=== PATIENT | female | born 1940 | race Caucasian/White ===

== ENCOUNTER 2016-07-17 17:57 | Inpatient (IN) | payer OTHER ==
[2016-07-17] MEDS ORDERED: NS 2,100 ML IV ONE (18:11)
--- NOTE | 2016-07-17 18:16 | EKG Report ---
Test Performed on : 07/17/2016 6:01:52 PM Test Reason : Blood Pressure : / mmHG Vent. Rate : 126 BPM Atrial Rate : 126 BPM P-R Int : 146 ms QRS Dur : 070 ms QT Int : 306 ms P-R-T Axes : 057 000 057 degrees QTc Int : 443 ms Sinus tachycardia. Nonspecific ST abnormality Abnormal ECG When compared with ECG of 17-JUL-2016 18:01, (Unconfirmed) No significant change was found Unconfirmed Result
--- NOTE | 2016-07-17 18:26 | PROVIDER DOCUMENTATION ---
HPI-Respiratory General - General Chief Complaint: Shortness of Breath Stated Complaint: dyspnea Time Seen by Provider: 07/17/16 18:03 Source: patient Allergies/Adverse Reactions: Patient Allergies Allergy/AdvReac Type Severity Reaction Status Date / Time No Known Allergies Allergy Verified 10/10/15 21:53 Home Medications: Aspirin 81 mg PO DAILY 11/13/13 Chlorpheniramine [Chlor-Trimeton] 4 mg PO BID 11/13/13 Citalopram [Celexa] 20 mg PO DAILY 11/13/13 ENALApril [Vasotec] 10 mg PO BID 11/13/13 Metoprolol [Lopressor] 25 mg PO BID 11/13/13 Theophylline Anhydrous [Theophylline] 600 mg PO BID 11/13/13 Amlodipine/Valsartan [Exforge 5/160] 1 each PO DAILY 07/17/16 Cetirizine HCl [Zyrtec] 10 mg PO DAILY 07/17/16 Etodolac [Lodine] 400 mg PO BID CC 07/17/16 Montelukast Sodium [Singulair] 10 mg PO DAILY 07/17/16 - History of Present Illness-Resp Quality of Pain: reports: aching Severity in ED: reports: moderate Onset/Duration: reports: 3 days ago Timing: reports: still present Cough Quality/Degree: reports: dry cough Associated Symptoms: reports: cough, fever/chills, headache, muscle/bodyaches, shortness of breath, sore throat. denies: chest pain/soreness Review of Systems - Adult - REVIEW OF SYSTEMS - ADULT Constitutional: reports: fever. denies: chills Eyes: reports: no symptoms reported Ears, Nose, Mouth & Throat: reports: throat pain Cardiovascular: reports: no symptoms reported Respiratory: reports: cough, shortness of breath Gastrointestinal: reports: abdominal pain, diarrhea. denies: nausea, vomiting Genitourinary: reports: no symptoms reported Musculoskeletal: reports: no symptoms reported Integumentary: reports: no symptoms reported Neurological: reports: headache/migraines Psychiatric: reports: no symptoms reported Endocrine: reports: no symptoms reported Hematologic/Lymphatic: reports: no symptoms reported Allergic/Immunologic: reports: no symptoms reported All Other Systems: Reviewed and Negative Past History - Adult - PAST MEDICAL HISTORY-ADULT Review of Records: reports: Old Records Reviewed, Nursing Assessment Review, Medications Reviewed, Social history reviewed & non-contributory. Major Childhood Illnesses: reports: denies history Cardiovascular: reports: HTN Respiratory: reports: COPD Endocrine/Immune: reports: thyroid disorder (goiter) - PRIOR SURGERIES/PROCEDURES Surgical/Procedure History: reports: cholecystectomy, other (Total Knee Arthroplasty) - IMMUNIZATION STATUS Childhood Immunizations: See Nurse Assessment Flu Vaccine: See Nurse Assessment - SOCIAL HISTORY Smoking: non-smoker Substance Use: none/never Alcohol Use Frequency: never Living Situation: family Physical Exam-General - PHYSICAL EXAM-ADULT Initial Vital Signs Reviewed: Yes - CONSTITUTIONAL General Appearance: appears well, alert, mild distress - EYES Eyes: PERRL/EOMI, pink conjunctivae - HEAD, EARS, NOSE, MOUTH & THROAT HENMT: normocephalic/atraumatic, normal ENT inspection. negative: moist mucous membranes (dry) - NECK Neck: non-tender, full range of motion, normal inspection - RESPIRATORY Respiratory: chest non-tender, decreased breath sounds (bilateral), wheezing ( bilateral) - CARDIOVASCULAR Cardiovascular: normal peripheral pulses, regular rate, rhythm, no edema - GASTROINTESTINAL (ABDOMEN) Abdominal Exam: normal bowel sounds, soft, tenderness - LYMPHATIC Lymphatic: no adenopathy - MUSCULOSKELETAL Back Exam: normal inspection, no CVA tenderness, no vertebral tenderness Extremity: normal range of motion, non-tender, normal gait - SKIN Integumentary: normal color, normal turgor, warm/dry - NEUROLOGIC Neurologic: grossly normal, no motor/sensory deficits - PSYCHIATRIC Psych/Mental Status: normal mood/affect, normal thought content, normal thought process, oriented x 3 Progress - PLAN OF CARE/RESULTS Progress/Plan/Lab Results: Laboratory Tests 07/17/16 07/17/16 07/17/16 18:20 18:20 18:20 WBC RBC Hgb Hct MCV MCH MCHC RDW Std Deviation Plt Count MPV Immature Gran % (Auto) Neut % (Auto) Lymph % (Auto) [place] % (Auto) Eos % (Auto) Baso % (Auto) Immature Gran # (Auto) Neut # Lymph # [place] # Eos # Baso # Segmented Neutrophils Band Neutrophils Lymphocytes Monocytes PT INR APTT (Factor Assay) D-Dimer 2.97 H Specimen Type ARTERIAL Sample Site L RADIAL pH 7.48 H pCO2 38 pO2 56 L HCO3 28.4 H Base Excess 4.6 H Oxyhemoglobin 90.9 L ABG O2 Sat (Calculated) 14.7 L ABG O2 Saturation 93.7 L ABG Carboxyhemoglobin 2.00 ABG Methemoglobin 1.0 Tulio Test YES A-a O2 Difference 96.0 Total Hemoglobin 11.5 Lactate 0.70 Liter Flow 2.0 Blood Gas Modality CANNULA FiO2 % 28.0 Sodium Potassium Chloride Carbon Dioxide Anion Gap BUN Creatinine Estimated GFR/1.73 m2 BUN/Creatinine Ratio Glucose Calculated Osmolality Calcium Total Bilirubin AST ALT Alkaline Phosphatase Creatine Kinase Troponin T [id number] Pept 2020 H Total Protein Albumin Globulin Albumin/Globulin Ratio Plasma Lactate Urine Source Urine Color Urine Clarity Urine pH Ur Specific [place] Urine Protein Urine Ketones Urine Blood Urine Nitrite Urine Bilirubin Urine Urobilinogen Urine Microscopic RBC Urine WBC Urine Microscopic WBC Ur Epithelial Cells Urine Crystals Urine Bacteria Urine Casts Urine Yeast Urine Glucose 07/17/16 07/17/16 07/17/16 18:20 18:20 18:20 WBC 26.28 H RBC 3.75 L Hgb 11.3 L Hct 34.5 L MCV 92.0 MCH 30.1 MCHC 32.8 L RDW Std Deviation 12.3 Plt Count 213 MPV 10.0 Immature Gran % (Auto) 0.3 Neut % (Auto) 90.3 H Lymph % (Auto) 3.8 L [place] % (Auto) 5.1 Eos % (Auto) 0.3 Baso % (Auto) 0.2 Immature Gran # (Auto) 0.09 H Neut # 23.75 H Lymph # 1.00 L [place] # 1.33 H Eos # 0.07 Baso # 0.04 Segmented Neutrophils 86 H Band Neutrophils 5 H Lymphocytes 3 L Monocytes 6 PT INR APTT (Factor Assay) D-Dimer Specimen Type Sample Site pH pCO2 pO2 HCO3 Base Excess Oxyhemoglobin ABG O2 Sat (Calculated) ABG O2 Saturation ABG Carboxyhemoglobin ABG Methemoglobin Tulio Test A-a O2 Difference Total Hemoglobin Lactate Liter Flow Blood Gas Modality FiO2 % Sodium 136 Potassium 3.8 Chloride 98 Carbon Dioxide 26 Anion Gap 12 BUN 17 Creatinine 0.9 Estimated GFR/1.73 m2 > 60 BUN/Creatinine Ratio 19 Glucose 91 Calculated Osmolality 273 Calcium 9.1 Total Bilirubin 0.50 AST 19 ALT 15 Alkaline Phosphatase 98 Creatine Kinase 61 Troponin T < 0.010 Ioj-Q-Tjvakpadmeb Pept Total Protein 5.9 L Albumin 3.6 Globulin 2.0 Albumin/Globulin Ratio 2.0 Plasma Lactate Urine Source Urine Color Urine Clarity Urine pH Ur Specific [place] Urine Protein Urine Ketones Urine Blood Urine Nitrite Urine Bilirubin Urine Urobilinogen Urine Microscopic RBC Urine WBC Urine Microscopic WBC Ur Epithelial Cells Urine Crystals Urine Bacteria Urine Casts Urine Yeast Urine Glucose 07/17/16 07/17/16 07/17/16 18:20 19:07 20:08 WBC RBC Hgb Hct MCV MCH MCHC RDW Std Deviation Plt Count MPV Immature Gran % (Auto) Neut % (Auto) Lymph % (Auto) [place] % (Auto) Eos % (Auto) Baso % (Auto) Immature Gran # (Auto) Neut # Lymph # [place] # Eos # Baso # Segmented Neutrophils Band Neutrophils Lymphocytes Monocytes PT 13.4 INR 0.99 APTT (Factor Assay) 24.9 D-Dimer Specimen Type Sample Site pH pCO2 pO2 HCO3 Base Excess Oxyhemoglobin ABG O2 Sat (Calculated) ABG O2 Saturation ABG Carboxyhemoglobin ABG Methemoglobin Tulio Test A-a O2 Difference Total Hemoglobin Lactate Liter Flow Blood Gas Modality FiO2 % Sodium Potassium Chloride Carbon Dioxide Anion Gap BUN Creatinine Estimated GFR/1.73 m2 BUN/Creatinine Ratio Glucose Calculated Osmolality Calcium Total Bilirubin AST ALT Alkaline Phosphatase Creatine Kinase Troponin T [id number]-[id number]-Lodxmraivrw Pept Total Protein Albumin Globulin Albumin/Globulin Ratio Plasma Lactate 1.2 Urine Source CATH Urine Color YELLOW Urine Clarity CLEAR Urine pH 7.0 Ur Specific [place] 1.000 Urine Protein NEGATIVE Urine Ketones 1+(Small) A Urine Blood NEGATIVE Urine Nitrite NEGATIVE Urine Bilirubin 2+ A Urine Urobilinogen 4+(12 mg/dL) Urine Microscopic RBC Not Reportable Urine WBC TRACE A Urine Microscopic WBC <10 Ur Epithelial Cells <10 Urine Crystals NONE SEEN Urine Bacteria NEGATIVE Urine Casts NONE SEEN Urine Yeast NONE SEEN Urine Glucose NEGATIVE Orders Category Date Time Status Cardiac Monitoring DIRECTED Care 07/17/16 18:10 Active IV Insertion ORDERED Care 07/17/16 18:10 Active Notify MD of + Sepsis Screen NOW Care 07/17/16 18:10 Active CHEST-PORTABLE [RAD] Stat Exams 07/17/16 18:16 Taken ABG [RESP] Routine Lab 07/17/16 18:20 Completed BLOOD CULTURE [BLDCUL] Stat Lab 07/17/16 19:07 Results BNP [PRO B-NATRIURETIC PEPTIDE] Stat Lab 07/17/16 18:20 Completed CBC WITH DIFF [HEME] Stat Lab 07/17/16 18:20 Completed CK PROFILE [SP CHEM] Stat Lab 07/17/16 18:20 Completed COMPREHENSIVE METABOLIC PANEL [CHEM] Stat Lab 07/17/16 18:20 [address] D-DIMER PL [COAG] Stat Lab 07/17/16 18:20 Completed LACTATE, PLASMA [CHEM] Stat Lab 07/17/16 19:07 Completed [address]IME WITH INR PL [COAG] Stat Lab 07/17/16 18:[address] [COAG] Stat Lab 07/17/16 18:20 Completed TROPONIN T Stat Lab 07/17/16 18:[address] W/POSS RFLX CULT [URINALYSIS] Stat Lab 07/17/16 20:08 Completed URINE CULTURE [RM] Routine Lab 07/17/16 20:32 Ordered 0.9% Sodium Chloride Inj [Ns] 2,100 ml Med 07/17/16 18:11 Discontinued IV 999 mls/hr Acetaminophen [Tylenol] Med 07/17/16 19:40 Discontinued 650 mg PO NOW ONE CefTRIAXONE 1 GM/NS [Rocephin 1 gm/Ns] 50 ml Med 07/17/16 19:40 Discontinued IV STAT Oxygen Device Stat Oth 07/17/16 18:10 Active Vital Signs - 24 hr 07/17/16 07/17/16 07/17/16 17:58 19:28 19:33 Temperature 101.0 F H Pulse Rate 131 H 126 H Respiratory 25 H Rate Blood Pressure 98/69 140/71 O2 Sat by Pulse 88 L 94 L Oximetry - EKG 1 Time of EKG reading by physician:: 18:01 EKG Read and Signed by:: Arjun Wang EKG Interpretation (*Must complete 3 of following elements*): Abnormal Rate: 126 Rhythm: Sinus Tachycardia Comments: Abnormal ECG , No Stemi - CONSULTS/PCP/HOSPITALIST Notification #1 *Consult/PCP/Hospitalist*: Time Discussed: 20:41 Reason/Comments: Admittance Consult Disposition: Admit (Admit Accepted) Departure - Departure Time of Disposition Order: 20:40 DIAGNOSIS: Pneumonia Qualifiers: Pneumonia type: due to unspecified organism Laterality: unspecified laterality Lung location: unspecified part of lung Qualified Code(s): J18.9 - Pneumonia, unspecified organism COPD (chronic obstructive pulmonary disease) Qualifiers: COPD type: unspecified COPD Qualified Code(s): J44.9 - Chronic obstructive pulmonary disease, unspecified Disposition: HOME 01 Certified Medical Emergency: Emergent Condition: Stable Additional Instructions: ED Follow Up Instructions: You have been treated by a care provider in the Emergency Department. These instructions are being provided to you so you can have an understanding of how to care for yourself upon discharge. Upon discharge from the Emergency Department, you are responsible for making arrangements for follow-up care by a physician of your choice. Take all prescribed medications as directed. Return to the Emergency Department immediately for any new or worsening symptoms. You may call the Physician Referral phone number at [phone] to obtain a list of Physicians who are taking new patients. Referrals: Butch Carl [Primary Care Provider] - Attestation - Scribe Verification/Attestation Scribe:: Allison Salcedo Acting as Scribe for:: Arjun Wang Scribe documention review:: This chart was documented by a scribe and accurately reflects the service the provider performed and the decisions made by the provider.
[2016-07-17 18:31] LABS: BE 4.6 mmoll (-3.0-3.0); BLOOD TYPE ARTERIAL; DRAW SITE L RADIAL; O2(CT) 14.7 mL/dL (15.0-23.0); PCO2(98.6) 38 mmHg (35-45); SAMPLE BLOOD; SAO2 93.7 % (95.0-100.0); THB 11.5 g/dL (11.5-17.4); pH(98.6) 7.48 (7.35-7.45)
[2016-07-17 18:39] LABS: MODALITY CANNULA; PO2(98.6) 56 mmHg (60-100)
[2016-07-17 18:40] LABS: ALLEN TEST YES
[2016-07-17 19:14] LABS: INR 0.99 (0.86-1.15); PROTIME 13.4 Seconds (12.1-15.5)
[2016-07-17 19:15] LABS: PTT PL 24.9 Seconds (22.6-43.9)
[2016-07-17 19:17] LABS: AGAP 12; ALBUMIN 3.6 g/dL (3.5-5.0); ALKALINE PHOSPHATASE 98 U/L (32-104); BUN 17 mg/dL (8-22); CALCIUM 9.1 mg/dL (8.8-10.2); CHLORIDE 98 mmol/L (98-107); CK PROFILE 61 U/L (24-173); COSMO 273; GOT 19 U/L (10-30); GPT 15 U/L (10-36); POTASSIUM 3.8 mmol/L (3.5-5.1); SODIUM 136 mmol/L (136-145); TCO2 26 mmol/L (25-35); TOTAL PROTEIN 5.9 g/dL (6.3-8.3)
[2016-07-17 19:27] LABS: BASO% 0.2 % (0.0-0.8); EOS# 0.07 X1000 (0.0-0.7); EOS% 0.3 % (0.0-10.0); HEMATOCRIT 34.5 % (37.0-47.0); HEMOGLOBIN 11.3 g/dL (12.0-16.0); IMM GRAN# 0.09 X1000 (0.0-0.04); IMM GRAN% 0.3 % (0.0-0.5); LYMPH% 3.8 % (20.5-51.1); MANUAL DIFF NEEDED? YES; MCH 30.1 PG (27-31); MCHC 32.8 g/dL (33-37); MONO# 1.33 X1000 (0.11-0.59); MONO% 5.1 % (1.7-9.3); NEUT% 90.3 % (42.2-75.2); PLT 213 X1000 (130-400); RBC 3.75 XMIL (4.2-5.4)
[2016-07-17] MEDS ORDERED: TYLENOL PO ONE (19:40)
[2016-07-17] MEDS ORDERED: ROCEPHIN 1 GM/NS 50 ML IV STA (19:40)
[2016-07-17 20:09] LABS: URINE SOURCE CATH
[2016-07-17 20:11] LABS: BANDS 5 % (0-1); LYMPHS 3 % (21-51); MONO 6 % (1-9)
[2016-07-17 20:20] LABS: BILIRUBIN URINE 2+ (NEGATIVE); BLOOD URINE NEGATIVE (NEGATIVE); CLARITY CLEAR (CLEAR); COLOR YELLOW; GLUCOSE URINE NEGATIVE (NEGATIVE); LEUKOCYTES URINE TRACE (NEGATIVE); NITRITE URINE NEGATIVE (NEGATIVE); PROTEIN URINE NEGATIVE (NEGATIVE); UROBILINOGEN URINE 4+(12 mg/dL)
[2016-07-17 20:31] LABS: URINE EPITHELIAL CELLS <10 /HPF (<10); URINE WBC <10 /HPF (<10)
[2016-07-17 20:32] LABS: URINE CAST NONE SEEN /LPF; URINE CRYSTAL NONE SEEN /HPF; URINE CULTURE PL NEEDED? YES
[2016-07-17] MEDS ORDERED: LOVENOX SUBQ ONE (20:43)
[2016-07-17] MEDS ORDERED: TYLENOL LIQUID PO PRN (20:57)
[2016-07-17] MEDS ORDERED: LOVENOX ONE (22:22)
[2016-07-17] MEDS: ZITHROMAX 500 MG/NS 250 ML IV SCH (22:35)
[2016-07-17] MEDS: DUONEB (A & A) INH SCH (23:30)
[2016-07-18] MEDS: DUONEB (A & A) INH SCH ×6 (03:07→22:33)
[2016-07-18] MEDS: NS 1,000 ML IV SCH ×3 (03:25→16:30)
[2016-07-18] MEDS: ROCEPHIN 1 GM/NS 50 ML IV SCH ×3 (03:25→21:20)
[2016-07-18] MEDS ORDERED: TYLENOL LIQUID PO PRN (08:19)
--- NOTE | 2016-07-18 08:21 | Diag Imaging Result Document ---
PROCEDURE NAME: CHEST-PORTABLE - 07/17/2016 PORTABLE CHEST X-RAY: COMPARISON: None. FINDINGS: There is cardiomegaly. There is linear atelectasis or infiltrate in the right lung base. There is a calcified granuloma in the left mid lung. Pulmonary vascularity is grossly normal. No pneumothorax or large effusion. IMPRESSION: Nonspecific findings.
--- NOTE | 2016-07-18 11:37 | Diag Imaging Result Document ---
PROCEDURE NAME: ANGIOGRAM/PULMONARY ARTERIES - 07/18/2016 CT PULMONARY ANGIOGRAM WITH INTRAVENOUS CONTRAST: A CT dose reduction protocol was used. COMPARISON: None. FINDINGS: Axial CT images of the chest were obtained after administering intravenous contrast. Coronal MIP images were generated. There is significant patient motion artifact in the bases. No evidence of pulmonary embolism. There is significant consolidation in the right lower lobe compatible with pneumonia. There is a trace left pleural effusion and some dependent atelectasis on the left side. Heart size is slightly enlarged. There is calcified coronary artery disease. The right lobe of the thyroid gland is enlarged and extends inferiorly in the right tracheoesophageal groove. The right lobe measures about 6.2 x 3.9 cm. The left lobe is also rather prominent. At the level of the sternal manubrium, there is compression of the trachea by both lobes of the thyroid gland. Upper abdominal images are unremarkable. Bony structures are intact. IMPRESSION: 1. Negative for pulmonary embolism. 2. Right lower lobe pneumonia. 3. Significantly enlarged thyroid gland particularly the right lobe. 4. Severe compression of the trachea by the enlarged thyroid gland at the level of the sternal manubrium. [facility]
--- NOTE | 2016-07-18 13:45 | HISTORY AND PHYSICAL ---
CHIEF COMPLAINT: Shortness of breath. HISTORY OF PRESENT ILLNESS: This is a 76-year-old female with a history of COPD, arthritis, hypertension who presented to the emergency room complaining of increasing shortness of breath. It has been present for about 2 weeks. About 3 weeks ago she noticed that it did become worse. She had subjective fevers generalized body aches and chills. She stated over the last 3 or 4 days that she noticed that it took just a little bit longer to accomplish her normal daily living due to shortness of breath but during the day prior to coming to the emergency room she developed shortness of breath at rest. She is found have a white count of 26.28 with a D-dimer of 2.97. Her chest x-ray revealed an infiltrate in the right lung base. Of note, the patient does have a history of COPD. She is on home O2. She does not have a pecan gatherer for about the past 2 years. In the emergency room she did have a room air saturation of 88%. ABG showed pH 7.48 with a PO2 of 56, bicarb of 28.4 on 2 L nasal cannula. She was given a liter of fluid along with Rocephin and admitted for further evaluation and treatment. PAST MEDICAL HISTORY: COPD, hypertension, thyroid disease. PAST SURGICAL HISTORY: Cholecystectomy and total knee. SOCIAL HISTORY: She denies alcohol, tobacco, or illicit drug use. She does live with her daughter. ALLERGIES: NO KNOWN DRUG ALLERGIES. HOME MEDICATIONS: A list will be obtained. REVIEW OF SYSTEMS: A 14-point review of systems is discussed with the patient with pertinent positives stated in HPI. She denied chest pain, palpitations, syncope, dizziness, nausea, vomiting, diarrhea, constipation, black or bloody vomitus, black or bloody stools, hematuria, dysuria, frequency, urgency. PHYSICAL EXAMINATION: GENERAL: This is a 76-year-old female who is sitting up in the bed with no distress. VITAL SIGNS: Blood pressure is 152/63 with a heart rate of 99, respirations are 20, temperature is 98.4 degrees oral with oxygen saturation 97% on 2 L nasal cannula. CARDIOVASCULAR: Regular rate and rhythm. S1 and S2 are appreciated. PULMONARY: Breath sounds are diminished with wheezing scattered throughout with prolonged expiration. No increased work of breathing noted. GASTROINTESTINAL: Soft, nontender, nondistended with bowel sounds in all 4 quadrants. MUSCULOSKELETAL: Good range of motion of joints. EXTREMITIES: No clubbing, cyanosis, or edema. To upper extremities she does have some trace pretibial edema bilateral. SKIN: Warm and dry. : Segura is patent with straw-colored urine draining. DIAGNOSTICS: Labs. WBC is 26.28 with hemoglobin 11.3, hematocrit 34.5 and platelets 213,000. D- dimer is 2.97. Sodium is 136, potassium 3.8, BUN 17, creatinine 0.9 with a glucose of 91. Blood cultures and urine culture pending. Chest x-ray reveals right lower lobe pneumonia. ASSESSMENT AND PLAN: 1. Right lower lobe pneumonia. Blood cultures were drawn in the emergency room and she was given Rocephin and azithromycin. We will continue these. Will give DuoNeb q.4 hours, q.2 hours p.r.n. with steroids to taper. Will verify her home medications and continue as appropriate. The patient has not seen a pecan gatherer in a few years she stated that she just stopped seeing the one that she had. She is encouraged to have pulmonology follow up. She was given the number to Dr. Monique's office to schedule an appointment if she decides. As right now she does not want us to schedule appointment for her. 2. The patient states that she has a history of chronic diarrhea that has been present for the last year, has increased over the last month. She denies any chronic antibiotic use. Discuss this with her daughter and will on discharge we can schedule an appointment with gastroenterology Dr. Downing as they had used him in the past to establish care. Further treatments pending hospital course. Dictated by INGA Wells for Ciro Valencia MD will workup hyperthyroidism and follow, may explain diarrhea and other symptoms , agree with above APENOT MTDD
[2016-07-18] MEDS: SOLU-MEDROL IV SCH ×2 (16:30→21:20)
[2016-07-18] MEDS: ZITHROMAX 500 MG/NS 250 ML IV SCH (22:17)
[2016-07-19] MEDS: DUONEB (A & A) INH SCH ×6 (03:21→22:46)
[2016-07-19] MEDS: NS 1,000 ML IV SCH ×2 (03:46→13:34)
[2016-07-19] MEDS: SOLU-MEDROL IV SCH ×3 (03:46→18:56)
[2016-07-19 06:21] LABS: AGAP 8; BUN 13 mg/dL (8-22); CALCIUM 8.4 mg/dL (8.8-10.2); CHLORIDE 107 mmol/L (98-107); COSMO 290; MAGNESIUM 1.8 mg/dL (1.5-2.7); POTASSIUM 3.5 mmol/L (3.5-5.1); SODIUM 140 mmol/L (136-145); TCO2 25 mmol/L (25-35)
[2016-07-19] MEDS ORDERED: TYLENOL LIQUID PO PRN (06:37)
[2016-07-19 06:42] LABS: HEMATOCRIT 30.2 % (37.0-47.0); HEMOGLOBIN 9.6 g/dL (12.0-16.0); MCH 29.6 PG (27-31); MCHC 31.8 g/dL (33-37); MCV 93.2 FL (81-99); RBC 3.24 XMIL (4.2-5.4)
--- NOTE | 2016-07-19 10:36 | PROGRESS NOTE ---
DATE: 07/19/2016 SUBJECTIVE: The patient states that she is feeling better today. She has had less shortness of breath. At present, she is receiving thyroid ultrasound. OBJECTIVE: Vital Signs: Blood pressure is 168/75 with a heart rate of 115, respirations are 18, temperature is 97.9 degrees oral with oxygen saturation of 95%. Cardiovascular: Regular rate and rhythm. She is tachycardic. S1 and S2 appreciated. Pulmonary: Breath sounds are clear with prolonged expiration. No increased work of breathing noted. Gastrointestinal: Abdomen is soft, nontender, nondistended with bowel sounds in all 4 quadrants. Extremities: No clubbing, cyanosis. She does have some trace pretibial edema. LABS: WBC is 11.9 down from 26.28 with hemoglobin 9.6, hematocrit 30.2 and platelets of 200. Sodium is 140, potassium 3.5, BUN 13, creatinine 0.8, glucose of 286. Her TSH was 0.01 with a free T4 of 1.50. PROBLEM LIST: 1. Right lower lobe pneumonia. The white blood cell count is dropping. The patient states that she is feeling better. We will continue with her current regimen. Once again, she will follow up with Dr. Monique on an outpatient basis. 2. Hyperthyroid. The patient does have thyroid ultrasound. Results are pending. 3. Chronic diarrhea. This has been present for the last year. Her hyperthyroidism could be a component. We have encouraged outpatient follow up with Dr. Downing. Dictated by INGA Wells for Ciro Valencia MD
[2016-07-19] MEDS: ROCEPHIN 1 GM/NS 50 ML IV SCH ×2 (11:17→22:00)
[2016-07-19] MEDS ORDERED: LOPRESSOR PO ONE (13:35)
[2016-07-19] MEDS ORDERED: ULTRAM PO SCH (13:45)
[2016-07-19] MEDS ORDERED: ULTRAM PO PRN (14:21)
--- NOTE | 2016-07-19 14:39 | Diag Imaging Result Document ---
PROCEDURE NAME: US SOFT TISSUE HEAD NECK - 07/19/2016 THYROID ULTRASOUND: FINDINGS: The examination is somewhat suboptimal technically. The left thyroid lobe is markedly inhomogeneous. Same is true of the right thyroid lobe. No measurements were obtained. Judging from the CT which was performed of the chest on 07/18/2016, the majority of the thyroidal tissue is below the level of the sternum. The right lobe in particular extends far posteriorly into the upper mediastinum displacing the esophagus slightly to the left with multiple small calcifications. This is not going to be accessible to ultrasonography, nor to percutaneous biopsy. 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
[2016-07-19] MEDS ORDERED: COMBIVENT RESPIMAT INHALER INH SCH (15:00)
[2016-07-19] MEDS: LODINE PO SCH (16:48)
[2016-07-19] MEDS: NORCO-7.5 PO SCH (22:00)
[2016-07-19] MEDS: LOPRESSOR PO SCH (22:00)
[2016-07-19] MEDS: ATIVAN PO SCH (22:01)
[2016-07-20] MEDS: ZITHROMAX 500 MG/NS 250 ML IV SCH (00:18)
[2016-07-20] MEDS: DUONEB (A & A) INH SCH ×6 (03:32→23:57)
[2016-07-20] MEDS ORDERED: DUONEB (A & A) INH PRN (05:56)
[2016-07-20 06:19] LABS: HEMATOCRIT 29.3 % (37.0-47.0); HEMOGLOBIN 9.3 g/dL (12.0-16.0); MCHC 31.7 g/dL (33-37); MCV 94.5 FL (81-99); MPV 9.9 FL (7.4-10.4); RBC 3.1 XMIL (4.2-5.4)
[2016-07-20] MEDS: PRILOSEC PO SCH (06:48)
[2016-07-20] MEDS: SOLU-MEDROL IV SCH ×3 (06:49→17:59)
[2016-07-20 07:23] LABS: AGAP 9; BUN 20 mg/dL (8-22); CALCIUM 8.1 mg/dL (8.8-10.2); CHLORIDE 109 mmol/L (98-107); COSMO 284; POTASSIUM 3.6 mmol/L (3.5-5.1); SODIUM 139 mmol/L (136-145); TCO2 22 mmol/L (25-35)
[2016-07-20] MEDS: ASPIRIN PO SCH (08:53)
[2016-07-20] MEDS: NS 1,000 ML IV SCH ×3 (08:53→19:01)
[2016-07-20] MEDS: LODINE PO SCH ×2 (08:53→17:59)
[2016-07-20] MEDS: NORCO-7.5 PO SCH ×2 (08:53→20:37)
[2016-07-20] MEDS: ZYRTEC PO SCH (08:53)
[2016-07-20] MEDS: HYDROCHLOROTHIAZIDE PO SCH (08:54)
[2016-07-20] MEDS: DIOVAN PO SCH (08:54)
[2016-07-20] MEDS: LOPRESSOR PO SCH ×2 (08:54→20:36)
[2016-07-20] MEDS: NORVASC PO SCH (08:54)
[2016-07-20] MEDS: ATIVAN PO SCH ×2 (08:54→20:36)
[2016-07-20] MEDS: SINGULAIR PO SCH (08:54)
[2016-07-20] MEDS: ROCEPHIN 1 GM/NS 50 ML IV SCH ×2 (08:55→20:36)
[2016-07-20] MEDS: CELEXA PO SCH (08:55)
[2016-07-20] MEDS ORDERED: HCTHIAZID PO SCH (09:00)
[2016-07-20] MEDS ORDERED: [UNRECOGNIZED DRUG - OTHER] PO SCH (09:00)
[2016-07-20] MEDS ORDERED: VALSARTAN PO SCH (09:00)
[2016-07-20] MEDS ORDERED: AMLODIPINE PO SCH (09:00)
[2016-07-20] MEDS: FLONASE NAS SCH (09:04)
--- NOTE | 2016-07-20 14:16 | PROGRESS NOTE ---
DATE: 07/20/2016 SUBJECTIVE: Ms. Antunez states that she feels better today. She feels like she is breathing better. She denies any chest pain, palpitations, PND, orthopnea. OBJECTIVE: Vital signs: Blood pressure is 181/73 with a heart rate of 56, respirations are 18, temperature is 97.5 degrees oral with oxygen saturations of 93-95% on 2 L nasal cannula. Cardiovascular: Regular rate and rhythm. S1 and S2 appreciated. She is tachycardic. Pulmonary: Breath sounds are clear with prolonged expiration. No increased work of breathing noted. Gastrointestinal: Abdomen soft, nontender, nondistended. Bowel sounds in all 4 quadrants. Extremities: No clubbing or cyanosis. She does have a little pretibial edema. LABS: WBC is 16 with a hemoglobin 9.3, hematocrit 29 and platelets of 221,000. Sodium is 139, potassium 3.6, BUN 20, creatinine 0.9 with a glucose of 160. Head and neck ultrasound revealed multinodular goiter with extensive substernal and mediastinal component. The right lobe in particular extends far posteriorly into the upper mediastinum displacing the esophagus to the left with multiple small calcifications. PROBLEM LIST: 1. Right lower lobe pneumonia. White blood cell count went up. The patient has been in bed since admission. Will get her up in a chair, get her moving around. Will continue with her current treatment. 2. Hyperthyroid. 3. Thyroid goiter. According to the ultrasound is pretty large goiter. It does extend to the level of the sternum with the right lobe extending posteriorly into the upper mediastinum displacing the esophagus. This is not going to be accessible ultrasound nor percutaneous biopsy. This may be some component to the patient's stating that she feels like food has being getting stuck over the last 6 months. She can be evaluated by a general surgery on an outpatient basis for this. 4. Chronic diarrhea. This has been present for about a year. Hyperthyroidism could be a component. She can follow up on an outpatient basis with Dr. Downing as she has seen him in the past. Dictated by INGA Wells for Ciro Valencia MD
[2016-07-20] MEDS: ZITHROMAX PO SCH (20:36)
[2016-07-21] MEDS: DUONEB (A & A) INH SCH ×6 (02:58→22:42)
[2016-07-21] MEDS: SOLU-MEDROL IV SCH ×3 (03:00→20:24)
[2016-07-21] MEDS: PRILOSEC PO SCH (06:11)
[2016-07-21] MEDS: ROCEPHIN 1 GM/NS 50 ML IV SCH ×2 (09:41→20:23)
[2016-07-21] MEDS: ASPIRIN PO SCH (09:42)
[2016-07-21] MEDS: NORCO-7.5 PO SCH ×2 (09:42→20:24)
[2016-07-21] MEDS: CELEXA PO SCH (09:42)
[2016-07-21] MEDS: ZYRTEC PO SCH (09:42)
[2016-07-21] MEDS: LOPRESSOR PO SCH ×2 (09:42→20:26)
[2016-07-21] MEDS: HYDROCHLOROTHIAZIDE PO SCH (09:42)
[2016-07-21] MEDS: ATIVAN PO SCH ×2 (09:42→20:27)
[2016-07-21] MEDS: NORVASC PO SCH (09:43)
[2016-07-21] MEDS: DIOVAN PO SCH (09:43)
[2016-07-21] MEDS: SINGULAIR PO SCH (09:43)
[2016-07-21] MEDS: LODINE PO SCH ×2 (09:44→17:53)
[2016-07-21] MEDS: FLONASE NAS SCH (09:44)
--- NOTE | 2016-07-21 11:24 | PROGRESS NOTE ---
DATE: 07/21/2016 SUBJECTIVE: Patient resting quietly in bed. States, "I don't feel as good today as I did yesterday", but no specific complaints were voiced. OBJECTIVE: Vital signs: Temp 98.4 degrees, pulse 105, respirations 18, blood pressure 154/69 saturating 96-97% on 2 L via nasal cannula. HEENT: Normocephalic and atraumatic. Pupils are equal, round, reactive to light. Extraocular movements are intact. Oropharynx and nares are clear. Neck: Supple. Lungs: With some scattered expiratory wheezing noted. Equal lung expansion and chest wall movement. Heart: Regular rate and rhythm. No murmurs, rubs, or gallops. Abdomen: Abdomen is soft, nontender, nondistended. Bowel sounds are present x4 quadrants. Extremities: No clubbing, cyanosis. Patient is noted to have some edema to her upper and lower extremities. Neurological: Cranial nerves 2-12 appear grossly intact. LABORATORY DATA: No new labs today. ASSESSMENT AND PLAN: 1. Right lower lobe pneumonia. We will continue her IV antibiotics, DuoNebs. We will continue her steroids. We will recheck a CBC in the a.m. She is to continue to get up to the chair with meals and at bedtime. 2. Thyroid goiter. She will be evaluated on an outpatient basis by General Surgery once discharged from the hospital. 3. Chronic diarrhea. She will follow up with LATISHA Daugherty as an outpatient, and this is most likely a contributing component to her hyperthyroidism. 4. Generalized edema. We will stop her IV fluids at this time. We are rechecking her weight. She may need a low-dose of Lasix and we will continue daily weights to evaluate that. Dictated by INGA Reynolds for Ciro Valencia MD
[2016-07-21] MEDS: LASIX IV SCH ×2 (11:26→20:24)
[2016-07-21] MEDS: ZITHROMAX PO SCH (20:24)
[2016-07-22] MEDS: PRILOSEC PO SCH (06:40)
--- NOTE | 2016-07-22 07:14 | Extremity Venous Study ---
PROCEDURE NAME: Venous U/S Bilateral Legs - 07/18/2016 VENOUS ULTRASOUND OF BOTH LOWER EXTREMITIES: FINDINGS: The deep veins are compressible and demonstrate no evidence of obstruction on color Doppler flow. IMPRESSION: No evidence of deep venous thrombosis.
[2016-07-22 07:21] LABS: BASO% 0.2 % (0.0-0.8); HEMATOCRIT 33.5 % (37.0-47.0); HEMOGLOBIN 11.1 g/dL (12.0-16.0); IMM GRAN% 2.4 % (0.0-0.5); LYMPH# 0.59 X1000 (1.2-3.4); LYMPH% 4.8 % (20.5-51.1); MANUAL DIFF NEEDED? YES; MCH 30.2 PG (27-31); MCHC 33.1 g/dL (33-37); MONO# 0.61 X1000 (0.11-0.59); MONO% 4.9 % (1.7-9.3); MPV 9.7 FL (7.4-10.4); NEUT% 87.7 % (42.2-75.2); PLT 298 X1000 (130-400); RBC 3.68 XMIL (4.2-5.4)
[2016-07-22] MEDS: DUONEB (A & A) INH SCH ×5 (07:44→22:40)
[2016-07-22 07:55] LABS: BANDS 1 % (0-1); LYMPHS 9 % (21-51); MONO 5 % (1-9); NRBC 2 % (0-0)
[2016-07-22 08:00] LABS: CALCIUM 9.2 mg/dL (8.8-10.2); POTASSIUM 3.9 mmol/L (3.5-5.1)
[2016-07-22] MEDS: ROCEPHIN 1 GM/NS 50 ML IV SCH (09:18)
[2016-07-22] MEDS: SINGULAIR PO SCH (09:19)
[2016-07-22] MEDS: LOPRESSOR PO SCH ×2 (09:19→22:08)
[2016-07-22] MEDS: ZYRTEC PO SCH (09:19)
[2016-07-22] MEDS: LODINE PO SCH ×2 (09:19→17:51)
[2016-07-22] MEDS: ASPIRIN PO SCH (09:19)
[2016-07-22] MEDS: NORVASC PO SCH (09:19)
[2016-07-22] MEDS: CELEXA PO SCH (09:20)
[2016-07-22] MEDS: ATIVAN PO SCH ×2 (09:20→22:09)
[2016-07-22] MEDS: DIOVAN PO SCH (09:20)
[2016-07-22] MEDS: NORCO-7.5 PO SCH ×2 (09:20→22:08)
[2016-07-22] MEDS: SOLU-MEDROL IV SCH (09:27)
[2016-07-22] MEDS: FLONASE NAS SCH (09:27)
--- NOTE | 2016-07-22 11:18 | PROGRESS NOTE ---
DATE: 07/22/2016 SUBJECTIVE: The patient states that she feels better today. She has been sitting on the side of the bed. She denies any chest pain, palpitations, any PND or orthopnea. OBJECTIVE: Vital Signs: Blood pressure is 147/77. Heart rate , 95-97% on 2 L nasal cannula. Cardiovascular: Regular rate and rhythm. S1 and S2 are appreciated. Pulmonary: She does have some scattered expiratory wheezing with no increased work of breathing noted. Gastrointestinal: Abdomen is soft, nontender, nondistended with bowel sounds in all 4 quadrants. Extremities: No clubbing, cyanosis. She does have some edema noted to upper and lower extremities. Neurologic: She is alert and oriented x3. LABORATORY DATA: WBC is 12.39 with hemoglobin 11.1, hematocrit 33.5, platelets of 298,000. Sodium is 142, potassium 3.9, BUN 30, creatinine 1.1 with a glucose of 157. Her albumin is 3.4. ASSESSMENT AND PLAN: 1. Right lower lobe pneumonia. We will continue with her current regimen. We will continue to decrease her steroids. 2. Thyroid goiter due to considerable size. This needs to be followed with general surgery. This can be done on an outpatient basis. 3. Chronic diarrhea. She is to follow up with Dr. Downing as an outpatient. Of course, her hyperthyroid could be a very large contributing component. 4. Generalized edema. Will stop her IV fluids. She is -2 L over the last 24 hours. Dictated by INGA Wells for Ciro Valencia MD
[2016-07-22] MEDS: LOVENOX SUBQ SCH (18:41)
[2016-07-22] MEDS: ZITHROMAX PO SCH (22:08)
[2016-07-23] MEDS: DUONEB (A & A) INH SCH ×6 (03:35→18:15)
[2016-07-23] MEDS: NORCO-7.5 PO SCH ×3 (04:56→20:55)
[2016-07-23] MEDS: ROCEPHIN 1 GM/NS 50 ML IV SCH ×5 (04:57→21:02)
[2016-07-23] MEDS: PRILOSEC PO SCH ×2 (05:50→06:21)
[2016-07-23 06:25] LABS: HEMATOCRIT 30.3 % (37.0-47.0); HEMOGLOBIN 9.4 g/dL (12.0-16.0); MCH 28.8 PG (27-31); MCV 92.9 FL (81-99); MPV 9.8 FL (7.4-10.4); RBC 3.26 XMIL (4.2-5.4)
[2016-07-23 06:33] LABS: POTASSIUM 3.8 mmol/L (3.5-5.1)
[2016-07-23] MEDS: LOPRESSOR PO SCH ×2 (08:49→20:55)
[2016-07-23] MEDS: LODINE PO SCH ×2 (08:50→17:05)
[2016-07-23] MEDS: ZYRTEC PO SCH (08:50)
[2016-07-23] MEDS: SINGULAIR PO SCH (08:50)
[2016-07-23] MEDS: CELEXA PO SCH (08:51)
[2016-07-23] MEDS: NORVASC PO SCH (08:51)
[2016-07-23] MEDS: ASPIRIN PO SCH (08:51)
[2016-07-23] MEDS: ATIVAN PO SCH ×2 (08:52→20:55)
[2016-07-23] MEDS: DIOVAN PO SCH (08:53)
[2016-07-23] MEDS: FLONASE NAS SCH (08:58)
[2016-07-23] MEDS ORDERED: SOLU-MEDROL IV SCH (09:00)
--- NOTE | 2016-07-23 10:41 | Diag Imaging Result Document ---
PROCEDURE NAME: WINIFRED ABDOMEN - 07/23/2016 KUB: INDICATION: Ileus. FINDINGS: Single portable supine view of the abdomen reveals moderate cecal material within the distal transverse colon. No small bowel dilatation is appreciated. Rectal gas is present. There are cholecystectomy clips. There is a moderate rotoscoliosis. IMPRESSION: Nonspecific abdomen. No evidence for ileus or obstruction.
--- NOTE | 2016-07-23 16:39 | PROGRESS NOTE ---
DATE: 07/23/2016 SUBJECTIVE: No focal complaints voiced. Resting quietly in bed. OBJECTIVE: Vital signs: Temperature 98.0 degrees, pulse Pulse 82. Respirations 18. Blood pressure 119/52. Saturating 100% on room air. General: This is a 76-year-old female who is resting quietly in bed. HEENT: Normocephalic and atraumatic. Pupils are equal, round, reactive to light. Extraocular movements are intact. Oropharynx and nares are clear. Neck: Supple. Lungs: Were clear to auscultation bilaterally with equal lung expansion and chest wall movement. Heart: With regular rate and rhythm. No murmurs, rubs, or gallops. Abdomen: Abdomen is soft, nontender, nondistended. Bowel sounds are present x4 quadrants. Extremities: There is no clubbing or cyanosis. Patient is noted to have some mild edema to her right hand. Neurological: The cranial nerves 2-12 are grossly intact. LABORATORY DATA: Showed a white blood cell count of 10.26, hemoglobin 9.4, hematocrit 30.3, platelets 271,000. Sodium 141, potassium 3.8, chloride 105, CO2 27, BUN of 36, creatinine 1.1. Glucose 97. IMAGING: Abdominal x-ray showed a nonspecific abdomen, no evidence for ileus or obstruction. ASSESSMENT/PLAN: 1. Right lower lobe pneumonia. We will continue with her current medication regimen and recheck a CBC in the a.m. 2. Thyroid goiter She will follow up with General Surgery on a outpatient basis. 3. Chronic diarrhea. She will be following up with Dr. Downing as an outpatient. 4. Generalized edema. Her fluids have been stopped. This has improved as she received 2 doses of Lasix day before yesterday, and she is noted to have some minimal edema to her right hand, but otherwise improved. We will recheck a BMP in the a.m. DISPOSITION: She will be discharged to rehab when bed available, which should be in the next day or two. Dictated by INGA Reynolds for Amilcar Vargas MD
[2016-07-23] MEDS: LOVENOX SUBQ SCH (17:04)
[2016-07-23] MEDS ORDERED: NS 500 ML IV SCH (19:30)
[2016-07-23] MEDS: ZITHROMAX PO SCH (20:55)
[2016-07-24] MEDS: DUONEB (A & A) INH SCH ×4 (00:24→11:19)
[2016-07-24] MEDS: PRILOSEC PO SCH (06:04)
[2016-07-24 06:09] LABS: MANUAL DIFF NEEDED? NO
[2016-07-24 06:17] LABS: BASO% 0.1 % (0.0-0.8); EOS# 0.26 X1000 (0.0-0.7); HEMATOCRIT 31.6 % (37.0-47.0); HEMOGLOBIN 9.8 g/dL (12.0-16.0); IMM GRAN# 0.32 X1000 (0.0-0.04); IMM GRAN% 3.6 % (0.0-0.5); LYMPH# 1.73 X1000 (1.2-3.4); LYMPH% 19.7 % (20.5-51.1); MCV 93.5 FL (81-99); MONO# 0.69 X1000 (0.11-0.59); MONO% 7.8 % (1.7-9.3); MPV 9.7 FL (7.4-10.4); NEUT% 65.8 % (42.2-75.2); PLT 294 X1000 (130-400); RBC 3.38 XMIL (4.2-5.4)
[2016-07-24 06:34] LABS: AGAP 6; BUN 30 mg/dL (8-22); CALCIUM 8.9 mg/dL (8.8-10.2); CHLORIDE 107 mmol/L (98-107); COSMO 285; POTASSIUM 3.9 mmol/L (3.5-5.1); SODIUM 140 mmol/L (136-145); TCO2 27 mmol/L (25-35)
--- NOTE | 2016-07-24 08:14 | PROGRESS NOTE ---
DATE: 07/24/2016 SUBJECTIVE: Patient states she is feeling a bit better. She is having no real complaints. Notes that she had a urinary output yesterday. She is able to sit up with some assistance. PHYSICAL EXAMINATION: Vital Signs: Temperature 98, pulse 92, respiratory rate 18, blood pressure 152/69. General: Patient is well developed, well nourished. Currently in no distress. She is awake, alert. Pleasant to talk with. Speech is regular. Neck: Supple. CV: Regular rate. Chest: Clear. Abdomen: Soft and obese. Extremities: Moves all extremities. Trace edema. Neurologic: No changes. LABORATORY DATA: Hemoglobin and hematocrit 9 and 31, WBCs 8. Creatinine 0.9. Calcium 8.9. ASSESSMENT: 1. Hypocalcemia, resolved. 2. Leukocytosis, improved. 3. Generalized edema. Continues to improve. She has had a 3 pound weight loss in the past few days. She has been negative approximately 3.5 L over the past 2 days. 4. Right lower lobe pneumonia. Continues to improve. Currently on Rocephin and azithromycin. 5. Hypertension. Continue Diovan, Norvasc, and metoprolol. 6. Thyroid goiter. Will need to continue to follow outpatient. 7. Chronic diarrhea. Continues to be problematic but has not changed. PLAN: We will continue patient's chronic medications. Continue to wean. Discontinue her Segura. Continue physical therapy. She certainly will need rehabilitation and is capable of transferring to rehabilitation when bed available.
--- NOTE | 2016-07-24 10:16 | DISCHARGE SUMMARY ---
ADMISSION DATE: 07/17/2016 DISCHARGE DATE: 07/24/2016 ADMISSION DIAGNOSES: 1. Right lower lobe pneumonia. 2. Chronic diarrhea for the past year. DISCHARGE DIAGNOSES: 1. Right lower lobe pneumonia, improved. 2. Leukocytosis, improved. 3. Hypertension. 4. Thyroid goiter. 5. Chronic diarrhea. SUMMARY OF FINDINGS: This is a 76-year-old, female who presented to the emergency room with complaints of increased shortness of breath for about 2 weeks. Had subjective fevers, generalized body aches, and chills. She stated over just the last 3-4 days, she noticed that it took a little longer to accomplish her normal daily living due to the shortness of breath. When she came to the emergency room, she was found to have a white blood cell count of 26.28 with a D- dimer of 2.97. Chest x-ray revealed an infiltrate in the right lung base. She has O2 at home and has been followed by a mobile phone salesperson for the past 2 years. In the emergency room, she was noted to have a room air saturation of 88%. She was started on IV antibiotics, DuoNebs q.4 hours and 2 hours p.r.n., a steroid taper. The patient states that she had not seen her mobile phone salesperson in a few years. She had a lower extremity venous Doppler study that showed no evidence of a DVT. She had a pulmonary arteriogram that was negative for pulmonary embolism and showed a right lower lobe pneumonia. It also showed a significantly enlarged thyroid gland, particularly in the right lobe with severe compression of the trachea by the enlarged thyroid gland at the level of the sternal manubrium. We did a head and neck ultrasound that found a multinodular goiter with extensive substernal and mediastinal component. It was felt by the attending physician that this could best be worked up as an outpatient after she completes her rehabilitation stay. She has clinically improved. White blood cell count today is 8.8. She has been afebrile for greater than 24 hours. Her chronic diarrhea also can be followed up outpatient after completion of rehabilitation with her GI doctor, Dr. Downing. All of these things have been discussed with the patient and her family, and they verbalized understanding and it is felt that she can safely be discharged to rehabilitation today. DISCHARGE MEDICATIONS: Will include Levaquin 500 mg p.o. daily for 5 days, aspirin 81 mg p.o. daily, Zyrtec 10 mg p.o. daily, Celexa 20 mg p.o. daily, etodolac 400 mg p.o. b.i.d. with meals, 1 spray nasally daily, Parmelee 7.5 one p.o. b.i.d., Combivent inhaler 4 times daily, Ativan 0.5 mg p.o. b.i.d., metoprolol 12.5 mg p.o. b.i.d., Singulair 10 mg p.o. daily, and Prilosec 20 mg p.o. daily. FOLLOWUP: Again, she can follow up with general surgery outpatient for her goiter once rehabilitation is completed and with GI for her chronic diarrhea after rehabilitation is completed. 35 minutes. Dictated by INGA Reynolds for Amilcar Vargas MD
[2016-07-24] MEDS: LODINE PO SCH (10:19)
[2016-07-24] MEDS: NORCO-7.5 PO SCH (10:20)
[2016-07-24] MEDS: ASPIRIN PO SCH (10:20)
[2016-07-24] MEDS: NORVASC PO SCH (10:21)
[2016-07-24] MEDS: CELEXA PO SCH (10:21)
[2016-07-24] MEDS: SINGULAIR PO SCH (10:21)
[2016-07-24] MEDS: LOPRESSOR PO SCH (10:22)
[2016-07-24] MEDS: ATIVAN PO SCH (10:22)
[2016-07-24] MEDS: DIOVAN PO SCH (10:23)
[2016-07-24] MEDS: ZYRTEC PO SCH (10:23)
[2016-07-24] MEDS: ROCEPHIN 1 GM/NS 50 ML IV SCH (10:24)
[2016-07-24] MEDS: FLONASE NAS SCH (10:24)
[2016-07-24 12:42] VITALS: BP 150/75
== END 2016-07-24 14:50 | DRG 190 ==
LOC: P.ED 17:57 → P.MEDSURG 21:47
PROVIDERS: ATTEND Family Medicine
DX: J44.0 Chronic obstructive pulmonary disease with (acute) lower respiratory infection (principal); J18.9 Pneumonia, unspecified organism; Z99.81 Dependence on supplemental oxygen; E83.51 Hypocalcemia; I10 Essential (primary) hypertension; M19.90 Unspecified osteoarthritis, unspecified site; R60.1 Generalized edema; Z79.82 Long term (current) use of aspirin; Z79.891 Long term (current) use of opiate analgesic; Z79.899 Other long term (current) drug therapy; Z79.51 Long term (current) use of inhaled steroids; K52.89 Other specified noninfective gastroenteritis and colitis; E05.20 Thyrotoxicosis with toxic multinodular goiter without thyrotoxic crisis or storm; J39.8 Other specified diseases of upper respiratory tract
CPT/HCPCS: 36415; 51702; 71010; 71275; 74000; 76536; 80048; 80053; 81001; 82040; 82550; 82805; 83605; 83735; 83880; 84439; 84443; 84481; 84484; 85025; 85027; 85379; 85610; 85730; 87040; 87088; 87804; 93970; 94640; 94761; 96361; 96365; 96367; J0456; J0696; J1650; J1940; J2920; J7030; J7040; Q9967; 97001-GP

== ENCOUNTER 2016-09-29 16:41 | Inpatient (IN) | payer OTHER ==
[2016-09-29] MEDS ORDERED: ASPIRIN PO STA (17:09)
[2016-09-29] MEDS ORDERED: LASIX IV ONE (17:12)
[2016-09-29] MEDS ORDERED: DUONEB (A & A) INH ONE (17:13)
[2016-09-29] MEDS ORDERED: SOLU-MEDROL IV ONE (17:13)
--- NOTE | 2016-09-29 17:19 | PROVIDER DOCUMENTATION ---
HPI-Respiratory General - General Chief Complaint: Shortness of Breath Stated Complaint: SOB Time Seen by Provider: 09/29/16 17:03 Source: patient Allergies/Adverse Reactions: Patient Allergies Allergy/AdvReac Type Severity Reaction Status Date / Time No Known Allergies Allergy Verified 09/04/16 12:42 Home Medications: Home Medication List Medication Instructions Recorded Confirmed Last Taken Type Albuterol Sulfate 0.63 mg IH 4XDAY PRN PRN 09/04/16 09/04/16 Unknown History Albuterol Sulfate [Proventil Hfa] 1 - 2 puff IH Q6H PRN PRN 09/04/16 09/04/16 Unknown History Alendronate Sodium [Fosamax] 70 mg PO DIRECTED 09/04/16 09/04/16 Unknown History Chlorpheniramine [Chlor-Trimeton] 1 tab PO BID PRN 09/04/16 09/04/16 Unknown History Citalopram [Celexa] 20 mg PO DAILY 09/04/16 09/30/16 09/30/16 08:00 History Fluticasone 50 Mcg Nasal [place] 1 spray JUSTINE DAILY 09/04/16 09/04/16 Unknown History [Flonase] Fluticasone/Salmeterol [Advair 1 each IH BID 09/04/16 09/04/16 Unknown History 500-50 Diskus] Hydrocodone/APAP 5 mg/325 mg 1 each PO Q6H PRN PRN 09/04/16 09/04/16 Unknown History [[place]-5] Ipratropium/Albuterol INH 2 inh INH Q4H PRN PRN 09/04/16 09/04/16 Unknown History [Combivent Respimat Inhaler] Lorazepam [Ativan] 0.5 mg PO BID PRN PRN 09/04/16 09/30/16 Unknown History Bumetanide [Bumex] 1 mg PO DAILY #30 tablet 09/09/16 Unknown Rx Omeprazole [Prilosec] 40 mg PO DAILY@0700 #60 capsule 09/09/16 09/30/16 Unknown Rx Bumetanide 2 mg PO DAILY 09/30/16 09/30/16 Unknown History Etodolac 400 mg PO BID 09/30/16 09/30/16 Unknown History Hydrocodone/Acetaminophen [[place] 7.5 mg PO PRN PRN 09/30/16 09/30/16 Unknown History 7.5-325 Tablet] Metoprolol [Lopressor] 12.5 mg PO BID 09/30/16 09/30/16 Unknown History Montelukast [Singulair] 10 mg PO DAILY 09/30/16 09/30/16 Unknown History - History of Present Illness-Resp Nature of Presenting Problem: Pt is 76 y/o F presents to the ED with SOB. Pt states she is on home oxygen at 2.5L 09/02. Pt states she has COPD. Pt states former smoker. Pt states SOB has worsened past 3 days. Pt denies F Quality of Pain: reports: aching Severity in ED: reports: mild Onset/Duration: reports: 3 days ago Timing: reports: still present Exposure: reports: unknown cause Cough Quality/Degree: reports: no cough Current Respiratory Medication Therapy: Initiated see nurses note Modifying Factors: improves with: nothing Associated Symptoms: reports: shortness of breath Similar Symptoms Previously?: Yes Recently seen or treated by another doctor?: No Review of Systems - Adult - REVIEW OF SYSTEMS - ADULT Constitutional: reports: no symptoms reported Eyes: reports: no symptoms reported Ears, Nose, Mouth & Throat: reports: no symptoms reported Cardiovascular: reports: no symptoms reported Respiratory: reports: shortness of breath. denies: cough, wheezing Gastrointestinal: reports: no symptoms reported Genitourinary: reports: no symptoms reported Musculoskeletal: reports: no symptoms reported Integumentary: reports: no symptoms reported Neurological: reports: no symptoms reported Psychiatric: reports: no symptoms reported Endocrine: reports: no symptoms reported Hematologic/Lymphatic: reports: no symptoms reported Allergic/Immunologic: reports: no symptoms reported All Other Systems: Reviewed and Negative Past History - Adult - PAST MEDICAL HISTORY-ADULT Review of Records: reports: Nursing Assessment Review, Medications Reviewed, Social history reviewed & non-contributory. Major Childhood Illnesses: reports: denies history Cardiovascular: reports: HTN Respiratory: reports: COPD Gastrointestinal: reports: denies history Obstetrical/Gynecological: reports: denies history Genitourinary: reports: denies history Musculoskeletal: reports: denies history Neurological: reports: CVA Endocrine/Immune: reports: thyroid disorder (goiter) Other Conditions: reports: denies history - PRIOR SURGERIES/PROCEDURES Surgical/Procedure History: reports: cholecystectomy, other (Total Knee Arthroplasty) - IMMUNIZATION STATUS Childhood Immunizations: See Nurse Assessment Flu Vaccine: See Nurse Assessment - FAMILY HISTORY Family History: reviewed, not pertinent - SOCIAL HISTORY Smoking: quit greater than 1 year, cigarettes Substance Use: denies Living Situation: family Physical Exam-General - PHYSICAL EXAM-ADULT Initial Vital Signs Reviewed: Yes - CONSTITUTIONAL General Appearance: appears well, alert, no apparent distress - EYES Eyes: PERRL/EOMI, pink conjunctivae, fundi clear, no AV nicking - HEAD, EARS, NOSE, MOUTH & THROAT HENMT: normocephalic/atraumatic, moist mucous membranes, normal ENT inspection, TMs normal, pharynx normal - NECK Neck: non-tender, full range of motion, supple, normal inspection - RESPIRATORY Respiratory: chest non-tender, no pleuratic chest pain, no respiratory distress , no accessory muscle use, decreased breath sounds, wheezing - CARDIOVASCULAR Cardiovascular: normal peripheral pulses, regular rate, rhythm, no edema, no gallop, no JVD, no murmur - GASTROINTESTINAL (ABDOMEN) Abdominal Exam: normal bowel sounds, non tender, soft, no organomegaly, no pulsatile mass - LYMPHATIC Lymphatic: no adenopathy - MUSCULOSKELETAL Back Exam: normal inspection, no CVA tenderness, no vertebral tenderness Extremity: normal range of motion, non-tender, normal gait, normal inspection, no pedal edema, no calf tenderness, normal capillary refill - SKIN Integumentary: normal color, normal turgor, warm/dry - NEUROLOGIC Neurologic: grossly normal - PSYCHIATRIC Psych/Mental Status: normal mood/affect, oriented x 3 Progress - PLAN OF CARE/RESULTS Progress/Plan/Lab Results: Orders Category Date Time Status Cardiac Monitoring DIRECTED Care 09/29/16 17:09 Active Oxygen Therapy- ED Nursing DIRECTED Care 09/29/16 17:09 Active Saline Loc NOW Care 09/29/16 17:09 Active CHEST-PORTABLE [RAD] Stat Exams 09/29/16 17:10 Ordered ABG [RESP] Routine Lab 09/29/16 17:10 Ordered CBC WITH ELECTRONIC DIFF [HEME] Stat Lab 09/29/16 17:09 Ordered CK PROFILE [SP CHEM] Stat Lab 09/29/16 17:09 Ordered COMPREHENSIVE METABOLIC PANEL [CHEM] Stat Lab 09/29/16 17:09 Ordered MAGNESIUM [CHEM] Stat Lab 09/29/16 17:09 Ordered PRO B-NATRIURETIC PEPTIDE Stat Lab 09/29/16 17:[address]IME WITH INR PL [COAG] Stat Lab 09/29/16 17:[address] [COAG] Stat Lab 09/29/16 17:09 Ordered TROPONIN T Stat Lab 09/29/16 17:09 Ordered Albuterol 2.5MG/Ipratrop 0.5MG [Duoneb (A & A)] Med 09/29/16 17:13 Discontinued 3 ml INH NOW ONE Aspirin Med 09/29/16 17:09 Discontinued 325 mg PO STAT STA Furosemide [Lasix] Med 09/29/16 17:12 Discontinued 40 mg IV NOW ONE Methylprednisolone Sod Succ [Solu-Medrol] Med 09/29/16 17:13 Discontinued 125 mg IV NOW ONE Aerosol Treatments Routine Oth 09/29/16 17:13 Active Aerosol Treatments Stat Oth 09/29/16 17:13 Active EKG [EKG] Stat Ther 09/29/16 17:09 Ordered Vital Signs - 24 hr 09/29/16 16:43 Temperature 98.3 F Pulse Rate 94 H Respiratory 20 Rate Blood Pressure 177/86 O2 Sat by Pulse 98 Oximetry Laboratory Tests 09/29/16 17:13 Specimen Type ARTERIAL Sample Site L BRACHIAL pH 7.47 H pCO2 51 H* pO2 83 HCO3 34.2 H Base Excess 11.9 H Oxyhemoglobin 94.8 L ABG O2 Sat (Calculated) 13.3 L ABG O2 Saturation 95.7 ABG Carboxyhemoglobin 0.40 ABG Methemoglobin 0.4 A-a O2 Difference 67.0 Total Hemoglobin 9.9 L Lactate 0.60 Liter Flow 2.5 Blood Gas Modality CANNULA FiO2 % 30.0 - EKG 1 Time of EKG reading by physician:: 17:26 EKG Read and Signed by:: Olamide Maxwell EKG Interpretation (*Must complete 3 of following elements*): Normal Rate: 96 Rhythm: normal sinus rhythm Comments: normal ECG - XRAY 1 XRAY: Bilateral XRAY Study: Chest Impression: Abnormal XRAY Interpretation: cardiomegaly with right base atelectasis vs small infiltrate - CHANGE OF SHIFT REPORT (ED Provider) Report Given and Care Transferred to:: Dr. Garcia Time of Transfer: 17:50 Items Pending: Labs Departure - Departure Attestation - Scribe Verification/Attestation Scribe:: Aicha Larsen Acting as Scribe for:: Olamide Maxwell Scribe documention review:: This chart was documented by a scribe and accurately reflects the service the provider performed and the decisions made by the provider. - Scribe Verification/Attestation #2 Shift Change Time: 17:50 Scribe Name: Allison Salcedo Acting as Scribe for:: Butch Garcia
[2016-09-29 17:31] LABS: BE 11.9 mmoll (-3.0-3.0); BLOOD TYPE ARTERIAL; DRAW SITE L BRACHIAL; METHB 0.4 % (0.0-1.5); O2(CT) 13.3 mL/dL (15.0-23.0); PO2(98.6) 83 mmHg (60-100); SAMPLE BLOOD; SAO2 95.7 % (95.0-100.0); THB 9.9 g/dL (11.5-17.4); pH(98.6) 7.47 (7.35-7.45)
[2016-09-29 17:38] LABS: MANUAL DIFF NEEDED? NO
[2016-09-29 17:38] LABS: MODALITY CANNULA; PCO2(98.6) 51 mmHg (35-45)
--- NOTE | 2016-09-29 17:39 | EKG Report ---
Test Performed on : 09/29/2016 5:26:23 PM Test Reason : CHEST PAIN Blood Pressure : / mmHG Vent. Rate : 096 BPM Atrial Rate : 096 BPM P-R Int : 142 ms QRS Dur : 070 ms QT Int : 366 ms P-R-T Axes : 045 039 050 degrees QTc Int : 462 ms Normal sinus rhythm. Normal ECG When compared with ECG of 17-JUL-2016 18:01, No significant change was found Unconfirmed Result
[2016-09-29 17:45] LABS: BASO% 0.5 % (0.0-0.8); EOS# 0.26 X1000 (0.0-0.7); EOS% 4.4 % (0.0-10.0); HEMATOCRIT 28.2 % (37.0-47.0); HEMOGLOBIN 9.3 g/dL (12.0-16.0); IMM GRAN# 0.02 X1000 (0.0-0.04); IMM GRAN% 0.3 % (0.0-0.5); LYMPH# 1.26 X1000 (1.2-3.4); LYMPH% 21.2 % (20.5-51.1); MCH 29.9 PG (27-31); MCV 90.7 FL (81-99); MONO# 0.67 X1000 (0.11-0.59); MONO% 11.3 % (1.7-9.3); MPV 9.3 FL (7.4-10.4); NEUT% 62.3 % (42.2-75.2); PLT 197 X1000 (130-400); RBC 3.11 XMIL (4.2-5.4)
[2016-09-29 17:55] LABS: INR 0.98 (0.86-1.15); PROTIME 13.3 Seconds (12.1-15.5)
[2016-09-29 17:56] LABS: PTT PL 28.9 Seconds (22.6-43.9)
[2016-09-29 18:01] LABS: ALBUMIN 3.3 g/dL (3.5-5.0); CALCIUM 8.9 mg/dL (8.8-10.2); MAGNESIUM 1.5 mg/dL (1.5-2.7); POTASSIUM 3.4 mmol/L (3.5-5.1); TOTAL BILIRUBIN 0.4 mg/dL (0.20-1.00); TOTAL PROTEIN 5.7 g/dL (6.3-8.3)
--- NOTE | 2016-09-29 18:15 | Diag Imaging Result Document ---
PROCEDURE NAME: CHEST-PORTABLE - 09/29/2016 PORTABLE CHEST COMPARISON: 09/08/16 FINDINGS: The heart is enlarged. The vessels are not distended. I believe there is a tiny right effusion with basilar atelectasis versus a tiny infiltrate. Superior mediastinal prominence is unchanged. IMPRESSION: 1. Mild cardiomegaly. 2. Right basilar atelectasis versus a small infiltrate with trace right pleural fluid.
[2016-09-29] MEDS ORDERED: NS 1,000 ML IV SCH (19:15)
[2016-09-29] MEDS: DUONEB (A & A) INH SCH (21:35)
[2016-09-29] MEDS: LASIX IV SCH (22:52)
[2016-09-29] MEDS: ATIVAN PO PRN (22:52)
[2016-09-30] MEDS: DUONEB (A & A) INH SCH ×2 (03:06)
[2016-09-30] MEDS ORDERED: TYLENOL PO PRN (06:19)
[2016-09-30] MEDS ORDERED: DUONEB (A & A) INH PRN (06:19)
[2016-09-30] MEDS ORDERED: ZOFRAN IV PRN (06:19)
--- NOTE | 2016-09-30 06:20 | Diag Imaging Result Document ---
PROCEDURE NAME: CHEST-2 VIEWS - 09/29/2016 FRONTAL AND LATERAL CHEST, TWO VIEWS: COMPARISON: Compared to 09/29/2016. FINDINGS: The lungs are hyperexpanded. There is increased AP diameter to the chest. The heart is mildly enlarged. The pulmonary vessels are small. There are increased markings in the right base believed to be fibrosis or atelectasis. No consolidation. There is moderate scoliosis. IMPRESSION: 1. Cardiomegaly. 2. Basilar atelectasis or fibrosis. 3. The lungs are hyperexpanded.
[2016-09-30] MEDS: PRILOSEC PO SCH (06:41)
[2016-09-30] MEDS: SOLU-MEDROL IV SCH ×3 (06:42→23:28)
[2016-09-30] MEDS: LASIX IV SCH ×3 (06:42→18:18)
[2016-09-30] MEDS ORDERED: DUONEB (A & A) INH SCH (07:30)
--- NOTE | 2016-09-30 08:25 | PROGRESS NOTE ---
DATE: 09/30/2016 SUBJECTIVE: The patient notes she is still having some cough, congestion, still having shortness of breath, dyspnea on exertion, but denies any true chest pain or palpitations. Denies any fevers or chills. OBJECTIVE: Vital Signs: On physical, temp 97.4 degrees, pulse 93-112, respiratory 10, BP 149/59, satting 96% on 3 L. General: Patient is well developed, well nourished. Currently in no real respiratory distress. He is awake, alert. Neck: Supple. CV: Regular rate. Chest: Decreased breath sounds. Better air movement than last night. On exam, faint wheezing. Abdomen: Soft. Extremities: Moves all extremities. Neurologic: No changes. LABS: No new labs this morning. ASSESSMENT: 1. Chronic obstructive pulmonary disease with moderate exacerbation. 2. Chronic hypoxemia. Patient wears oxygen at home. 3. Chronic reflux. PLAN: Will continue patient on IV Lasix for 3 more doses. Will continue IV prednisone. We will decrease the amount. We will continue to follow. Recheck her labs. Breathing treatments. Further orders as needed.
[2016-09-30] MEDS: FLONASE NAS SCH (08:34)
[2016-09-30] MEDS: CELEXA PO SCH (08:34)
[2016-09-30] MEDS ORDERED: BUMEX PO SCH (10:15)
[2016-09-30] MEDS: SINGULAIR PO SCH (10:48)
[2016-09-30] MEDS: NORCO-7.5 PO PRN ×2 (10:48→18:17)
[2016-09-30] MEDS: LOPRESSOR PO SCH ×2 (10:48→21:52)
[2016-09-30] MEDS: ROCEPHIN 1 GM/NS 50 ML IV SCH ×2 (10:49→15:11)
--- NOTE | 2016-09-30 11:37 | HISTORY AND PHYSICAL ---
PRIMARY CARE PHYSICIAN: Dr. Mcrae. CHIEF COMPLAINT: Worsening shortness of breath. HISTORY OF PRESENTING ILLNESS: This is a 76-year-old female, who was admitted to this facility on 09/04/2016 with an acute kidney injury secondary to dehydration and COPD. It was felt that she may have an underlying pneumonia at that time also. She had an uneventful course and was discharged home and has home O2 at 2.5 liters via nasal cannula. She arrived to the emergency room with complaints of a 3-day history of shortness of breath that has progressively worsened despite the use of her home O2. Chest x-ray showed cardiomegaly with basilar atelectasis and that the lungs are hyperexpanded. There is no consolidation noted. Laboratory data showed an ABG with a pH of 7.47, pCO2 of 51, with an O2 of 83, bicarbonate 34.2 on 2.5 liters via nasal cannula. She did have a proBNP of 2135, and her echo from 2013 showed a grade 1 diastolic dysfunction with an ejection fraction at that time of 55%. So, she has been admitted for further evaluation and treatment. PAST MEDICAL HISTORY: COPD, asthma, hypertension, hypothyroidism, panic attacks, recurrent pneumonia and diastolic congestive heart failure. PAST SURGICAL HISTORY: Cholecystectomy and a right knee surgery. FAMILY HISTORY: Noncontributory. SOCIAL HISTORY: She lives with family. No tobacco, alcohol or illicit drug use currently. The patient did have a history of tobacco abuse and quit smoking cigarettes 7 years ago. ALLERGIES: She has no known drug allergies. HOME MEDICATIONS: We will hold the followin. Albuterol nebs 4 times daily p.r.n. 2. Proventil 1-2 puffs inhalation q. 6 hours p.r.n. 3. Fosamax 70 mg p.o. weekly. 4. Bumex 1 mg p.o. daily. 5. Chlor-Trimeton 1 tablet p.o. b.i.d. 6. [place] 5 one p.o. q. 6 hours p.r.n. 7. Combivent Respimat inhaler 2 inhalations q. 4 hours p.r.n. 8. Bumex 2 mg p.o. daily. We will continue her: 1. Celexa 20 mg p.o. daily. 2. Etodolac 400 mg p.o. b.i.d. 3. Flonase 1 spray nasally daily. 4. Advair 500/50 Diskus 1 inhalation b.i.d. 5. [place] 7.5 p.o. p.r.n. 6. Ativan 0.5 mg p.o. b.i.d. p.r.n. 7. Lopressor 12.5 mg p.o. b.i.d. 8. Singulair 10 mg p.o. daily. 9. Prilosec 40 mg p.o. daily. LABORATORY DATA: Showed a white blood cell count of 5.95, a hemoglobin of 9.3, hematocrit 28.2, platelets 197. PT and INR of 13.3 and 0.98. ABG with a pH of 7.47, pCO2 of 51, PO2 83, bicarbonate 34.2 and this was on 2.5 L via nasal cannula. Sodium of 141, potassium 3.4, chloride 103, CO2 29, BUN of 17, creatinine 1.1. Glucose 95, magnesium 1.5, AST of 11, ALT of 8, creatine kinase of 49. Troponin of less than 0.010. ProBNP of 2135. IMAGING DATA: Chest x-ray that showed cardiomegaly, basilar atelectasis or fibrosis, and that the lungs were hyperexpanded. EKG showed normal sinus rhythm at 96. REVIEW OF SYSTEMS: She denied any fever, chills, blurred vision, dizziness. She complained of a cough, shortness of breath, some left-sided discomfort in her chest from coughing most likely. Denies any abdominal pain, diarrhea, constipation, or burning or hurting with urination. PHYSICAL EXAMINATION: VITAL SIGNS: Show a temperature of 98.2 degrees, pulse 112, respirations 20, blood pressure 125/57, satting 97% on 3 L via nasal cannula. GENERAL: This is a 76-year-old female, who is lying in the bed and answering questions appropriately. HEENT: Normocephalic, atraumatic. Pupils are equal, round, and reactive to light. Extraocular movements are intact. The oropharynx and nares are clear. NECK: Supple. LUNGS: With expiratory wheezing and diminished in bases. Equal lung expansion. Chest wall movement is noted and O2 via nasal cannula currently in use. HEART: With regular rhythm. She is noted to be tachycardic. No murmurs, rubs, or gallops. ABDOMEN: Soft, nontender, nondistended. Bowel sounds are present x4 quadrants. EXTREMITIES: There is no clubbing, cyanosis, or edema. NEUROLOGICAL: The cranial nerves 2-12 are grossly intact. ASSESSMENT: 1. An acute chronic obstructive pulmonary disease exacerbation. 2. Diastolic congestive heart failure. 3. Some mild hypokalemia. 4. Sinus tachycardia. 5. Hypertension. PLAN: She has been admitted to the medical unit at [facility]. Placed on telemetry. O2 per protocol. We will check an echocardiogram today. It is felt that some of her sinus tachycardia may be related to her DuoNebs, so we will stop those and place her on Xopenex 1.25 mg inhalation q. [address] her on Lasix 40 mg IV q. 12 hours, Rocephin 1 gram IV q. 24 hours, Solu-Medrol 60 mg IV q. 8 hours, and we will wean that as she clinically improves. Continue her other home medications as previously listed. Blood cultures x2 are pending. Give her a healthy heart diet. We will recheck a CBC, CMP, and a magnesium level in the a.m. Dictated by [employer] for Amilcar Vargas MD
[2016-09-30] MEDS: XOPENEX NEB INH SCH ×4 (11:48→23:10)
[2016-09-30] MEDS: ADVAIR 500/50 DISKUS INH SCH ×2 (12:06→19:21)
--- NOTE | 2016-09-30 17:46 | ECHO REPORT ---
ORDER DATE: 09/30/2016 INDICATION: A 76-year-old female with CHF. M-MODE MEASUREMENTS: Right ventricle: 2.2 cm. Left ventricle end diastole: 5.4 cm. Left ventricle end systole: 2.5 cm. Posterior wall: 1.1 cm. Interventricular septum: 1.1 cm. Left atrium: 3.6 cm. Aortic root: 3.4 cm. SUMMARY OF 2-DIMENSIONAL IMAGIN. Left ventricular function is hyperdynamic with an ejection fraction of 75%. 2. The right ventricle appears to be normal. 3. This study is technically difficult. 4. The inferior vena cava is enlarged. 5. The tricuspid valve shows a moderate degree of regurgitation. 6. The pulmonary pressure is estimated at 66 mmHg. 7. The pulmonic valve looks normal. Color flow mapping is unremarkable. 8. The mitral valve opens normally. Color flow mapping indicates a mild degree of regurgitation. 9. Pulse wave Doppler of mitral inflow shows mild reversal of the E and the A wave. 10.Tissue Doppler of septal and lateral mitral annulus averages 4 cm. 11.There is impaired left ventricular relaxation. 12.The aortic valve is calcified and it shows restricted opening. 13.Continuous wave Doppler across the outflow tract of the left ventricle shows a maximum gradient of 50 mmHg. Mean gradient is 25 mmHg. 14.The aortic valve area calculated using the continuity equation is 1.8 cm2 which would be consistent with a mild degree of regurgitation. By grade it would be moderate. 15.There is a mild degree of aortic regurgitation noted. 16.There is no evidence of pericardial effusion and no sign of thrombus. 17.There is moderate calcification of the mitral annulus. SUMMARY: In summary, this study shows: 1. Hyperdynamic left ventricular function with an ejection fraction of 75%. 2. Impaired left ventricular relaxation. 3. Moderate pulmonary hypertension estimated at 66 mmHg. 4. Evidence of aortic stenosis by gradient of a moderate degree. Mean gradient 25 mmHg. By aortic valve area using continuity equation it would be mild with a valve area of 1.8 cm2. Clinical correlation is recommended.
[2016-09-30] MEDS: LODINE PO SCH (21:52)
[2016-09-30] MEDS: ATIVAN PO PRN (21:58)
[2016-10-01] MEDS: XOPENEX NEB INH SCH ×5 (03:49→19:46)
[2016-10-01] MEDS: ADVAIR 500/50 DISKUS INH SCH ×2 (07:15→19:46)
[2016-10-01 09:05] LABS: ALBUMIN 3.5 g/dL (3.5-5.0); CALCIUM 8.6 mg/dL (8.8-10.2); MAGNESIUM 1.5 mg/dL (1.5-2.7); POTASSIUM 3.2 mmol/L (3.5-5.1); TOTAL BILIRUBIN 0.3 mg/dL (0.20-1.00); TOTAL PROTEIN 5.9 g/dL (6.3-8.3)
[2016-10-01] MEDS: CELEXA PO SCH (09:22)
[2016-10-01] MEDS: LODINE PO SCH ×2 (09:22→20:51)
[2016-10-01] MEDS: SINGULAIR PO SCH (09:22)
[2016-10-01] MEDS: LOPRESSOR PO SCH ×2 (09:22→20:51)
[2016-10-01 10:02] LABS: HEMOGLOBIN 8.9 g/dL (12.0-16.0); MCH 29.1 PG (27-31); MCHC 31.8 g/dL (33-37); MCV 91.5 FL (81-99); MPV 9.9 FL (7.4-10.4); RBC 3.06 XMIL (4.2-5.4)
[2016-10-01] MEDS: FLONASE NAS SCH (10:53)
[2016-10-01] MEDS: LASIX IV SCH ×2 (10:54→18:21)
[2016-10-01] MEDS: PRILOSEC PO SCH (10:54)
[2016-10-01] MEDS: SOLU-MEDROL IV SCH ×2 (10:54→18:21)
[2016-10-01] MEDS ORDERED: KLOR-CON PO ONE (11:15)
[2016-10-01] MEDS: ROCEPHIN 1 GM/NS 50 ML IV SCH (15:30)
[2016-10-01] MEDS: NORCO-7.5 PO PRN (18:25)
[2016-10-02] MEDS: XOPENEX NEB INH SCH ×7 (00:17→23:04)
[2016-10-02] MEDS: SOLU-MEDROL IV SCH ×2 (01:43→14:16)
[2016-10-02] MEDS: PRILOSEC PO SCH (06:02)
[2016-10-02 07:27] LABS: HEMATOCRIT 28.5 % (37.0-47.0); HEMOGLOBIN 9.1 g/dL (12.0-16.0); MCH 29.3 PG (27-31); MCHC 31.9 g/dL (33-37); MCV 91.6 FL (81-99); RBC 3.11 XMIL (4.2-5.4)
[2016-10-02 07:45] LABS: ALBUMIN 3.5 g/dL (3.5-5.0); CALCIUM 8.4 mg/dL (8.8-10.2); MAGNESIUM 1.8 mg/dL (1.5-2.7); POTASSIUM 3.6 mmol/L (3.5-5.1); TOTAL BILIRUBIN 0.3 mg/dL (0.20-1.00); TOTAL PROTEIN 5.8 g/dL (6.3-8.3)
[2016-10-02] MEDS: ADVAIR 500/50 DISKUS INH SCH ×2 (07:55→19:32)
[2016-10-02] MEDS ORDERED: CHLOR-TRIMETON PO PRN (08:05)
[2016-10-02] MEDS ORDERED: NORCO-5 PO PRN (08:05)
--- NOTE | 2016-10-02 08:34 | PROGRESS NOTE ---
DATE: 10/02/2016 SUBJECTIVE: The patient notes that she is still jittery, nervous, anxious. Still feels too nervous to be able to sleep. Notes that her breathing is a little bit better. Denies any chest pains or palpitations. PHYSICAL EXAMINATION: Vital Signs: Temperature 98, pulse of 104-108, respiratory rate 16-22. BP 170/72. General: Patient is a well developed, elderly female who is currently in mild respiratory distress. She is awake, alert, pleasant to talk with. She is noted to be jittery on exam. HEENT: Normocephalic, atraumatic. LEESA. Neck: Supple. CV: Mild tachycardia. No murmurs. Chest: Diffuse wheezing, decreased but improved air movement from yesterday's exam. Abdomen: Soft. Extremities: Moves all extremities. Neurologic: No focal changes. DIAGNOSTIC DATA: WBCs 11, hemoglobin and hematocrit 9 and 28. Creatinine 1.3, BUN 29. ASSESSMENT: 1. Chronic obstructive pulmonary disease with moderate exacerbation. 2. Diastolic congestive heart failure. 3. Hypokalemia, resolved. 4. Mild acute renal failure, stable. 5. Hypertension. 6. Sinus tachycardia. PLAN: We will wean steroids again today to 40 q.12. We will continue breathing treatments and antibiotics. We will decrease her Lasix as she appears to be getting mildly dehydrated. We will restart her home Bumex 1 mg daily and follow.
[2016-10-02] MEDS: LOPRESSOR PO SCH ×3 (08:39→20:26)
[2016-10-02] MEDS: LODINE PO SCH ×3 (08:39→20:25)
[2016-10-02] MEDS: SINGULAIR PO SCH (08:39)
[2016-10-02] MEDS: CELEXA PO SCH (08:39)
[2016-10-02] MEDS: FLONASE NAS SCH (08:41)
[2016-10-02] MEDS: BUMEX PO SCH (09:04)
--- NOTE | 2016-10-02 09:07 | PROGRESS NOTE ---
DATE: 10/02/2016 ADDENDUM NOTE: SUBJECTIVE: The patient notes that she is really jittery this morning. She did not sleep last night. She is having increased cough, shortness of breath. She feels as though she is not breathing well. OBJECTIVE: Vital Signs: Reviewed and stable. She is awake, alert. She is afebrile. Heart rate is 102 to 105. Blood pressure is stable. General: Patient is jittery this morning. She is nervous. She is sitting upright in the bed. HEENT: Normocephalic. Neck: Supple. CV: Mild tachycardia. Chest: Decreased breath sounds. Positive wheezing bilaterally. Abdomen: Soft. Extremities: Moves all extremities. ASSESSMENT: 1. Chronic obstructive pulmonary disease with exacerbation. 2. Congestive heart failure with exacerbation. 3. Acute anxiety. 4. Acute renal failure. PLAN: We will continue patient on Lasix today. We will try her on Xopenex instead of albuterol. We will decrease her steroids and continue to follow.
[2016-10-02] MEDS: ROCEPHIN 1 GM/NS 50 ML IV SCH (14:16)
[2016-10-02] MEDS: NORCO-7.5 PO PRN (14:20)
[2016-10-03] MEDS: SOLU-MEDROL IV SCH (01:06)
[2016-10-03] MEDS: XOPENEX NEB INH SCH ×5 (03:15→20:25)
[2016-10-03] MEDS: PRILOSEC PO SCH (06:04)
[2016-10-03] MEDS: ADVAIR 500/50 DISKUS INH SCH ×2 (08:06→20:25)
[2016-10-03] MEDS: LOPRESSOR PO SCH ×2 (08:26→20:10)
[2016-10-03] MEDS: BUMEX PO SCH (08:26)
[2016-10-03] MEDS: FLONASE NAS SCH (08:26)
[2016-10-03] MEDS: SINGULAIR PO SCH (08:26)
[2016-10-03] MEDS: CELEXA PO SCH (08:26)
[2016-10-03] MEDS: LODINE PO SCH ×2 (08:26→20:10)
[2016-10-03 08:45] LABS: HEMATOCRIT 29.9 % (37.0-47.0); HEMOGLOBIN 9.4 g/dL (12.0-16.0); MCH 28.9 PG (27-31); MCHC 31.4 g/dL (33-37); MPV 9.1 FL (7.4-10.4); RBC 3.25 XMIL (4.2-5.4)
--- NOTE | 2016-10-03 08:57 | PROGRESS NOTE ---
DATE: 10/03/2016 SUBJECTIVE: The patient notes she is feeling better this morning. She is still jittery and nervous, but she equates this to steroids. OBJECTIVE: Vital Signs: Reviewed. Temperature 97, pulse 98, respiratory 20, BP 164/74. General: Patient is well developed, well nourished. She is currently in no real respiratory distress. She is awake, alert. HEENT: Normocephalic, atraumatic. Neck: Supple. CV: Regular rate. Chest: Relatively clear, with occasional wheezing, but much improved. Abdomen: Soft. Extremities: Moves all extremities. Neurologic: No changes. LABS: Reviewed. Current labs pending today. ASSESSMENT: 1. Chronic obstructive pulmonary disease with exacerbation. Continue to wean steroids. 2. Diastolic congestive heart failure, improved with Lasix. She is currently back on her home Bumex. 3. Hypertension, will restart Prinivil 10 mg. 4. Sinus tachycardia, improved. PLAN: We will continue to wean steroids today to 40 q.24. We will stop her Rocephin. Place her on Omnicef and azithromycin. We will continue to follow. If she is better this afternoon, possibly home, certainly by tomorrow.
[2016-10-03 09:08] LABS: ALBUMIN 3.6 g/dL (3.5-5.0); CALCIUM 8.6 mg/dL (8.8-10.2); POTASSIUM 3.5 mmol/L (3.5-5.1); TOTAL BILIRUBIN 0.4 mg/dL (0.20-1.00); TOTAL PROTEIN 5.8 g/dL (6.3-8.3)
[2016-10-03] MEDS: ZITHROMAX PO SCH (10:01)
[2016-10-03] MEDS: PRINIVIL PO SCH (10:02)
[2016-10-03] MEDS: OMNICEF PO SCH ×2 (10:02→20:10)
[2016-10-03] MEDS: NORCO-7.5 PO PRN (20:13)
[2016-10-04] MEDS: XOPENEX NEB INH SCH ×3 (00:39→08:19)
[2016-10-04] MEDS ORDERED: SOLU-MEDROL IV SCH (06:00)
[2016-10-04] MEDS: PRILOSEC PO SCH (06:29)
[2016-10-04 07:53] VITALS: BP 154/61
[2016-10-04] MEDS: LOPRESSOR PO SCH (08:07)
[2016-10-04] MEDS: OMNICEF PO SCH (08:07)
[2016-10-04] MEDS: PRINIVIL PO SCH (08:07)
[2016-10-04] MEDS: ZITHROMAX PO SCH (08:07)
[2016-10-04] MEDS: CELEXA PO SCH (08:07)
[2016-10-04] MEDS: BUMEX PO SCH (08:07)
[2016-10-04] MEDS: SINGULAIR PO SCH (08:07)
[2016-10-04] MEDS: FLONASE NAS SCH (08:08)
[2016-10-04] MEDS: NORCO-7.5 PO PRN (08:08)
[2016-10-04] MEDS: LODINE PO SCH (08:08)
[2016-10-04] MEDS: ADVAIR 500/50 DISKUS INH SCH (08:10)
--- NOTE | 2016-10-05 06:17 | DISCHARGE SUMMARY ---
ADMISSION DATE: 09/29/2016 DISCHARGE DATE: 10/04/2016 DISCHARGE DIAGNOSES: 1. Chronic obstructive pulmonary disease with exacerbation. 2. Diastolic congestive heart failure, improved on Lasix. Currently back on her home Bumex. 3. Hypertension, better with the addition of Prinivil 10 mg. 4. Sinus tachycardia, resolved. 5. Chronic depression. 6. Chronic arthritis. 7. Chronic anxiety. 8. Allergies. CONSULTATIONS: None. PROCEDURES: None. BRIEF HOSPITAL COURSE: Patient is a 76-year-old female who presented to the emergency department. Subsequently admitted with COPD exacerbation and mild congestive heart failure. She thankfully had an uneventful hospital course. She was admitted and treated in the usual fashion. Thankfully, she had a slow but expected hospital course, given her current age. On discharge, she was awake, alert. She was ambulating without much difficulty. She states that she was feeling back to her usual self. She thankfully had no further complications and therefore will be discharged home. DISPOSITION: The patient will be discharged home. We will continue her home medications with the addition of lisinopril 10 mg. This certainly may need to be increased. She will also be discharged home on Omnicef and azithromycin for another 5 days total and a Medrol Dosepak. Thirty-five minutes were spent on discharge planning and instructions.
== END 2016-10-04 14:12 | disposition home health service (06) | DRG 190 ==
LOC: P.ED 16:41 → P.MEDSURG 19:43
PROVIDERS: ATTEND Family Medicine
DX: J44.1 Chronic obstructive pulmonary disease with (acute) exacerbation (principal); I50.33 Acute on chronic diastolic (congestive) heart failure; Z99.81 Dependence on supplemental oxygen; E86.0 Dehydration; J98.11 Atelectasis; I11.0 Hypertensive heart disease with heart failure; J45.909 Unspecified asthma, uncomplicated; E87.6 Hypokalemia; R00.0 Tachycardia, unspecified; T48.6X5A Adverse effect of antiasthmatics, initial encounter; Z87.891 Personal history of nicotine dependence; R09.02 Hypoxemia; K21.9 Gastro-esophageal reflux disease without esophagitis; F41.0 Panic disorder [episodic paroxysmal anxiety]; L98.9 Disorder of the skin and subcutaneous tissue, unspecified; F32.9 Major depressive disorder, single episode, unspecified; M19.90 Unspecified osteoarthritis, unspecified site; T78.40XA Allergy, unspecified, initial encounter; Z79.899 Other long term (current) drug therapy; Z79.83 Long term (current) use of bisphosphonates; Z79.51 Long term (current) use of inhaled steroids; Z79.1 Long term (current) use of non-steroidal anti-inflammatories (NSAID)
CPT/HCPCS: 71010; 71020; 80053; 82550; 82805; 83735; 83880; 84484; 85025; 85027; 85610; 85730; 87040; 93005; 93306; 94640; 94667; 94668; 94761; 96374; 96375; J0696; J1940; J2920; J2930

== ENCOUNTER 2017-04-27 16:52 | Inpatient (IN) ==
[2017-04-27] MEDS ORDERED: LEVAQUIN PO ONE (17:27)
--- NOTE | 2017-04-27 17:42 | Diag Imaging Result Doc PS360 ---
EXAM: CHEST-2 VIEWS HISTORY: Shortness of breath TECHNIQUE: Two views COMPARISON: 09/29/2016 FINDINGS: There is scarring in the right lung base. The lungs are hyperexpanded. Heart is mildly enlarged. The pulmonary vessels are not distended. No pneumonia. No pleural effusions. Mild scoliosis. IMPRESSION: Stable chest Electronically signed by Dustin Lu 04/27/2017 5:40 PM
[2017-04-27 17:50] LABS: BASO% 0.2 % (0.0-0.8); EOS% 0.8 % (0.0-10.0); HEMATOCRIT 33.9 % (37.0-47.0); HEMOGLOBIN 10.8 g/dL (12.0-16.0); IMM GRAN# 0.03 X1000 (0.0-0.04); IMM GRAN% 0.2 % (0.0-0.5); LYMPH% 6.9 % (20.5-51.1); MANUAL DIFF NEEDED? NO; MCH 30.3 PG (27-31); MCHC 31.9 g/dL (33-37); MCV 95.2 FL (81-99); MONO% 6.2 % (1.7-9.3); NEUT% 85.7 % (42.2-75.2); PLT 217 X1000 (130-400); RBC 3.56 XMIL (4.2-5.4)
[2017-04-27 18:30] LABS: AGAP 8; BUN 22 mg/dL (8-22); CHLORIDE 102 mmol/L (98-107); COSMO 280; POTASSIUM 4.2 mmol/L (3.5-5.1); SODIUM 139 mmol/L (136-145); TCO2 29 mmol/L (25-35)
[2017-04-27] MEDS ORDERED: LABETALOL IV ONE ×2 (19:21→21:02)
[2017-04-27] MEDS ORDERED: CATAPRES PO ONE (19:22)
[2017-04-27] MEDS ORDERED: ZOSYN 4.5 GM in NS 100 ML IV ONE (19:23)
[2017-04-27] MEDS ORDERED: TYLENOL ONE (19:44)
[2017-04-27] MEDS ORDERED: TYLENOL PO ONE (19:45)
[2017-04-27] MEDS ORDERED: MOTRIN ONE (19:46)
[2017-04-27] MEDS ORDERED: MOTRIN PO ONE (19:47)
[2017-04-28] MEDS: ZOSYN 4.5 GM in NS 100 ML IV SCH ×4 (02:28→20:06)
[2017-04-28] MEDS ORDERED: ATIVAN PO PRN (06:49)
[2017-04-28] MEDS ORDERED: ZOSYN ONE (08:02)
[2017-04-28] MEDS: FLONASE NAS SCH (08:13)
[2017-04-28] MEDS: CELEXA PO SCH (08:14)
[2017-04-28] MEDS: LODINE PO SCH ×2 (08:14→21:26)
[2017-04-28] MEDS: BUMEX PO SCH (08:14)
[2017-04-28] MEDS: LOPRESSOR PO SCH ×2 (08:14→21:26)
[2017-04-28] MEDS: SINGULAIR PO SCH (08:14)
[2017-04-28] MEDS: NORCO-10 PO PRN ×3 (08:25→21:29)
[2017-04-28] MEDS: ADVAIR 500/50 DISKUS INH SCH ×2 (09:54→19:12)
[2017-04-28] MEDS: DUONEB (A & A) INH PRN ×3 (09:54→19:11)
[2017-04-29] MEDS: ZOSYN 4.5 GM in NS 100 ML IV SCH ×4 (01:10→22:50)
[2017-04-29 06:25] LABS: MANUAL DIFF NEEDED? NO
[2017-04-29 06:32] LABS: BASO% 0.1 % (0.0-0.8); EOS# 0.08 X1000 (0.0-0.7); EOS% 0.8 % (0.0-10.0); HEMATOCRIT 29.5 % (37.0-47.0); HEMOGLOBIN 9.4 g/dL (12.0-16.0); IMM GRAN# 0.03 X1000 (0.0-0.04); IMM GRAN% 0.3 % (0.0-0.5); LYMPH# 0.79 X1000 (1.2-3.4); LYMPH% 8.3 % (20.5-51.1); MCH 30.2 PG (27-31); MCHC 31.9 g/dL (33-37); MCV 94.9 FL (81-99); MONO# 0.52 X1000 (0.11-0.59); MONO% 5.5 % (1.7-9.3); MPV 9.7 FL (7.4-10.4); PLT 173 X1000 (130-400); RBC 3.11 XMIL (4.2-5.4)
[2017-04-29 06:58] LABS: CALCIUM 8.3 mg/dL (8.8-10.2); POTASSIUM 4.3 mmol/L (3.5-5.1)
[2017-04-29] MEDS: ADVAIR 500/50 DISKUS INH SCH ×2 (07:38→20:37)
[2017-04-29] MEDS: DUONEB (A & A) INH PRN ×3 (07:38→20:37)
[2017-04-29] MEDS: FLONASE NAS SCH (09:14)
[2017-04-29] MEDS: LOPRESSOR PO SCH ×2 (09:15→21:43)
[2017-04-29] MEDS: LODINE PO SCH ×2 (09:15→22:44)
[2017-04-29] MEDS: CELEXA PO SCH (09:15)
[2017-04-29] MEDS: BUMEX PO SCH (09:15)
[2017-04-29] MEDS: SINGULAIR PO SCH (09:15)
[2017-04-29] MEDS: PRINIVIL PO SCH (09:15)
[2017-04-29] MEDS: NORCO-10 PO PRN ×2 (09:43→21:43)
[2017-04-29] MEDS ORDERED: ZOSYN ONE (21:41)
[2017-04-30] MEDS: DUONEB (A & A) INH PRN ×5 (00:29→23:10)
[2017-04-30] MEDS: ZOSYN 4.5 GM in NS 100 ML IV SCH ×4 (01:51→20:50)
[2017-04-30 06:23] LABS: HEMATOCRIT 27.9 % (37.0-47.0); HEMOGLOBIN 8.9 g/dL (12.0-16.0); MCH 30.5 PG (27-31); MCHC 31.9 g/dL (33-37); MCV 95.5 FL (81-99); MPV 9.5 FL (7.4-10.4); RBC 2.92 XMIL (4.2-5.4)
[2017-04-30 06:39] LABS: ALBUMIN 2.8 g/dL (3.5-5.0); CALCIUM 8.2 mg/dL (8.8-10.2); POTASSIUM 4.4 mmol/L (3.5-5.1); TOTAL BILIRUBIN 0.4 mg/dL (0.20-1.00); TOTAL PROTEIN 5.7 g/dL (6.3-8.3)
[2017-04-30] MEDS: ADVAIR 500/50 DISKUS INH SCH ×2 (07:43→19:29)
[2017-04-30] MEDS: LODINE PO SCH ×2 (08:53→20:49)
[2017-04-30] MEDS: SINGULAIR PO SCH (08:53)
[2017-04-30] MEDS: BUMEX PO SCH (08:53)
[2017-04-30] MEDS: LOPRESSOR PO SCH ×2 (08:53→20:49)
[2017-04-30] MEDS: FLONASE NAS SCH (08:53)
[2017-04-30] MEDS: CELEXA PO SCH (08:53)
[2017-04-30] MEDS: PRINIVIL PO SCH (08:53)
[2017-04-30] MEDS: NORCO-10 PO PRN ×3 (08:57→20:50)
[2017-05-01] MEDS: ZOSYN 4.5 GM in NS 100 ML IV SCH ×2 (01:56→08:23)
[2017-05-01] MEDS: DUONEB (A & A) INH PRN ×6 (03:22→23:34)
[2017-05-01 06:16] LABS: HEMOGLOBIN 8.7 g/dL (12.0-16.0); MCH 29.9 PG (27-31); MCHC 31.1 g/dL (33-37); MCV 96.2 FL (81-99); MPV 9.1 FL (7.4-10.4); RBC 2.91 XMIL (4.2-5.4)
[2017-05-01 06:22] LABS: ALBUMIN 2.9 g/dL (3.5-5.0); CALCIUM 8.5 mg/dL (8.8-10.2); POTASSIUM 4.2 mmol/L (3.5-5.1); TOTAL BILIRUBIN 0.4 mg/dL (0.20-1.00); TOTAL PROTEIN 5.1 g/dL (6.3-8.3)
[2017-05-01] MEDS: ADVAIR 500/50 DISKUS INH SCH ×2 (07:51→19:13)
[2017-05-01] MEDS: SINGULAIR PO SCH (08:20)
[2017-05-01] MEDS: LODINE PO SCH ×2 (08:20→21:02)
[2017-05-01] MEDS: FLONASE NAS SCH (08:20)
[2017-05-01] MEDS: CELEXA PO SCH (08:20)
[2017-05-01] MEDS: NORCO-10 PO PRN ×2 (08:20→19:36)
[2017-05-01] MEDS: BUMEX PO SCH (08:20)
[2017-05-01] MEDS: LOPRESSOR PO SCH ×2 (08:21→21:03)
[2017-05-01] MEDS: PRINIVIL PO SCH (08:21)
[2017-05-01] MEDS: ZOSYN 2.25 GM in NS 50 ML IV SCH ×2 (13:27→19:36)
[2017-05-02] MEDS: ZOSYN 2.25 GM in NS 50 ML IV SCH ×4 (01:06→21:15)
[2017-05-02] MEDS: NORCO-10 PO PRN ×4 (01:06→22:37)
[2017-05-02] MEDS: DUONEB (A & A) INH PRN ×5 (03:36→19:25)
[2017-05-02] MEDS: ADVAIR 500/50 DISKUS INH SCH ×2 (07:43→19:25)
[2017-05-02] MEDS: FLONASE NAS SCH (08:59)
[2017-05-02] MEDS: PRINIVIL PO SCH (08:59)
[2017-05-02] MEDS: SINGULAIR PO SCH (08:59)
[2017-05-02] MEDS: CELEXA PO SCH (08:59)
[2017-05-02] MEDS: LODINE PO SCH ×2 (08:59→22:36)
[2017-05-02] MEDS: LOPRESSOR PO SCH ×2 (08:59→22:37)
[2017-05-02] MEDS: BUMEX PO SCH (08:59)
[2017-05-03] MEDS: ZOSYN 2.25 GM in NS 50 ML IV SCH ×2 (03:19→06:31)
[2017-05-03 06:10] LABS: MANUAL DIFF NEEDED? NO
[2017-05-03 06:29] LABS: BASO% 0.2 % (0.0-0.8); EOS# 0.12 X1000 (0.0-0.7); EOS% 2.8 % (0.0-10.0); HEMOGLOBIN 8.5 g/dL (12.0-16.0); IMM GRAN# 0.01 X1000 (0.0-0.04); IMM GRAN% 0.2 % (0.0-0.5); LYMPH# 0.82 X1000 (1.2-3.4); LYMPH% 19.2 % (20.5-51.1); MCH 30.1 PG (27-31); MCHC 31.5 g/dL (33-37); MCV 95.7 FL (81-99); MONO# 0.57 X1000 (0.11-0.59); MONO% 13.3 % (1.7-9.3); MPV 9.2 FL (7.4-10.4); NEUT% 64.3 % (42.2-75.2); PLT 202 X1000 (130-400); RBC 2.82 XMIL (4.2-5.4)
[2017-05-03] MEDS: NORCO-10 PO PRN ×3 (06:31→20:15)
[2017-05-03 06:44] LABS: CALCIUM 8.9 mg/dL (8.8-10.2); POTASSIUM 4.5 mmol/L (3.5-5.1)
[2017-05-03] MEDS: ALBUTEROL NEB INH PRN ×2 (08:27→11:50)
[2017-05-03] MEDS: ADVAIR 500/50 DISKUS INH SCH ×2 (08:27→19:29)
[2017-05-03] MEDS: DUONEB (A & A) INH PRN ×4 (08:27→23:34)
[2017-05-03] MEDS: LODINE PO SCH ×2 (08:44→20:15)
[2017-05-03] MEDS: LOPRESSOR PO SCH ×2 (08:44→20:15)
[2017-05-03] MEDS: FLONASE NAS SCH (08:44)
[2017-05-03] MEDS: SINGULAIR PO SCH (08:44)
[2017-05-03] MEDS: PRINIVIL PO SCH (08:44)
[2017-05-03] MEDS: BUMEX PO SCH (08:44)
[2017-05-03] MEDS: CELEXA PO SCH (08:44)
[2017-05-03] MEDS ORDERED: LASIX IV ONE (12:13)
[2017-05-03] MEDS: AUGMENTIN PO SCH ×2 (12:57→20:15)
[2017-05-04] MEDS: ADVAIR 500/50 DISKUS INH SCH ×2 (07:44→19:27)
[2017-05-04] MEDS: DUONEB (A & A) INH PRN ×4 (07:44→23:46)
[2017-05-04] MEDS: PRINIVIL PO SCH (08:54)
[2017-05-04] MEDS: LODINE PO SCH ×2 (08:54→20:42)
[2017-05-04] MEDS: NORCO-10 PO PRN ×2 (08:54→20:48)
[2017-05-04] MEDS: AUGMENTIN PO SCH ×2 (08:54→20:42)
[2017-05-04] MEDS: SINGULAIR PO SCH (08:55)
[2017-05-04] MEDS: CELEXA PO SCH (08:55)
[2017-05-04] MEDS: FLONASE NAS SCH (08:55)
[2017-05-04] MEDS: LOPRESSOR PO SCH ×2 (08:55→20:42)
[2017-05-04] MEDS: BUMEX PO SCH (08:55)
[2017-05-04] MEDS: LABETALOL IV PRN ×2 (09:02→22:34)
[2017-05-05] MEDS: ADVAIR 500/50 DISKUS INH SCH (07:40)
[2017-05-05] MEDS: DUONEB (A & A) INH PRN ×2 (07:40→15:41)
[2017-05-05] MEDS: LODINE PO SCH (09:37)
[2017-05-05] MEDS: LOPRESSOR PO SCH (09:37)
[2017-05-05] MEDS: AUGMENTIN PO SCH (09:37)
[2017-05-05] MEDS: BUMEX PO SCH (09:37)
[2017-05-05] MEDS: PRINIVIL PO SCH (09:37)
[2017-05-05] MEDS: CELEXA PO SCH (09:38)
[2017-05-05] MEDS: FLONASE NAS SCH (09:38)
[2017-05-05] MEDS: SINGULAIR PO SCH (09:38)
[2017-05-05] MEDS: NORCO-10 PO PRN (09:47)
[2017-05-05 16:37] VITALS: BP 161/79
== END 2017-05-05 19:00 | disposition home or self-care (01) ==
LOC: P.ED 16:52 → SUATTDRO 20:50 → P.MEDSURG 20:50
PROVIDERS: ATTEND Internal Medicine